=== PATIENT | male | born 1935 | race African-American/Black ===

== ENCOUNTER 2017-04-27 02:14 | Inpatient (IN) | payer MEDICARE, OTHER ==
[2017-04-27] VITALS (9 sets, daily range): BP systolic 108–163; BP diastolic 53–67; PULSE 61–90; RESP 10–20; TEMP 95.2–99; O2SAT 97–100
[~2017-04-27] VITALS: Ht 172.7 cm; Wt 64.1 kg
--- NOTE | 2017-04-27 02:54 | PD ---
HPI Chief Complaint: Fall Time Seen by Provider: 02:22 Travel History International Travel<30 days: No Contact w/Intl Traveler<30days: No Traveled to known affect area: No History of Present Illness HPI Patient is an 81-year-old male presents emergency department for evaluation of left hip pain. According to EMS the patient fell at 1800 yesterday. [facility], and was complaining of left hip pain and x- ray was ordered at the [facility] showing a left femur fracture and EMS was called and was transported here. In route the patient received 10 mg of morphine by EMS, he is unable to provide any history at this time likely secondary to medication effect. When asked if he was hurting anywhere patient states "not anymore". Somewhat slurred in his speech is moving all 4 of his extremities on command. PFSH Past Medical History Medical History: Unable to Obtain Past Surgical History Surgical History: Unable to Obtain Social History Tobacco Use: No Allergies-Medications (Allergen,Severity, Reaction): Coded Allergies: No Known Allergies (Unverified , 04/27/17) Reported Meds & Prescriptions Reported Meds & Active Scripts Active Calcium 600+D 200 (Calcium Carbonate-Vitamin D) 600-200 Mg-Unit Tab 1 Tab PO BID 30 Days Vitamin D3 (Cholecalciferol) 2,000 Unit Cap 2,000 Units PO DAILY Ergocalciferol 50,000 Unit Cap 50,000 Units PO Q7D Xarelto (Rivaroxaban) 10 Mg Tab 10 Mg PO DAILY 14 Days [place] (Hydrocodone-Acetaminophen) 5 Mg-325 Mg Tab 1 Tab PO Q4H PRN Reported Tylenol (Acetaminophen) 325 Mg Tab 650 Mg PO Q8HR PRN Tubersol (Tuberculin Ppd) 5 Unit/0.1 Ml Syringe 0.1 Ml I-DERMAL .ONCE Trazodone (Trazodone HCl) 50 Mg Tab 75 Mg PO HS Tamsulosin (Tamsulosin HCl) 0.4 Mg Cap 0.4 Mg PO DAILY Seroquel (Quetiapine Fumarate) 25 Mg Tab 25 Mg PO TID Nitrostat SL (Nitroglycerin) 0.4 Mg Subl 0.4 Mg SL DIRECTED PRN 1 tablet under the tongue as needed for chest pain. Repeat every 5 minutes for a total of 3 DOSES or call 911 if NO relief. Namzaric (Memantine-Donepezil) 28-10 Mg Cap 1 Cap PO DAILY Levothyroxine (Levothyroxine Sodium) 50 Mcg Tab 50 Mcg PO DAILY Glucophage (Metformin HCl) 500 Mg Tab 250 Mg PO BIDPC Econazole Topical (Econazole Nitrate) 1% Cream 1 Applic TOPICAL DAILY Ferrous Sulfate 325 Mg (65 Mg Iron) Tablet 325 Mg PO TIDPC Clopidogrel (Clopidogrel Bisulfate) 75 Mg Tab 75 Mg PO DAILY Atorvastatin (Atorvastatin Calcium) 20 Mg Tab 20 Mg PO HS Amlodipine (Amlodipine Besylate) 10 Mg Tab 10 Mg PO DAILY Review of Systems ROS Limitations: Altered Mental Status Except as stated in HPI: all other systems reviewed are Neg Physical Exam Narrative GENERAL: Well-developed well-nourished in no obvious distress SKIN: Focused skin assessment warm/dry. HEAD: Atraumatic. Normocephalic. No zacarias signs no raccoon's eyes EYES: Pupils equal and round. No scleral icterus. No injection or drainage. ENT: No nasal bleeding or discharge. Mucous membranes pink and moist. NECK: Trachea midline. No JVD. CARDIOVASCULAR: Regular rate and rhythm. No murmur appreciated. RESPIRATORY: No accessory muscle use. Clear to auscultation. Breath sounds equal bilaterally. GASTROINTESTINAL: Abdomen soft, non-tender, nondistended. Hepatic and splenic margins not palpable. MUSCULOSKELETAL: There is shortening and external rotation of the left lower extremity, tenderness in internal and external rotations. Pulses motor and sensory intact distally in all 4 extremities. Compartments are soft. No midline CT or L-spine tenderness, pelvis stable,. NEUROLOGICAL: Awake and alert. No obvious cranial nerve deficits. Motor grossly within normal limits. Normal speech. PSYCHIATRIC: Appropriate mood and affect; insight and judgment normal. Data Data Last Documented VS Vital Signs Date Time Temp Pulse Resp B/P (MAP) Pulse Ox O2 Delivery O2 Flow Rate FiO2 04/27/17 03:14 98 Nasal Cannula 2.00 04/27/17 02:26 75 14 114/53 (73) Orders Orders Complete Blood Count With Diff (04/27/17 02:52) Comprehensive Metabolic Panel (04/27/17 02:52) Prothrombin Time / Inr (Pt) (04/27/17 02:52) Act Partial Throm Time (Ptt) (04/27/17 02:52) Type And Screen (04/27/17 02:52) Chest, Single Ap (04/27/17 02:52) Ecg Monitoring (04/27/17 02:52) Iv Access Insert/Monitor (04/27/17 02:52) Oximetry (04/27/17 02:52) Electrocardiogram (04/27/17 ) Hip, Uni(Ap&Lat) W Ap Pelvis (04/27/17 ) Admit Order (Ed Use Only) (04/27/17 ) Consult Orthopedic (04/27/17 ) Labs Laboratory Tests Test 04/27/17 03:55 White Blood Count 13.2 TH/MM3 Red Blood Count 2.61 MIL/MM3 Hemoglobin 9.0 GM/DL Hematocrit 26.8 % Mean Corpuscular Volume 102.9 FL Mean Corpuscular Hemoglobin 34.5 PG Mean Corpuscular Hemoglobin Concent 33.5 % Red Cell Distribution Width 14.2 % Platelet Count 233 TH/MM3 Mean Platelet Volume 8.1 FL Neutrophils (%) (Auto) 93.1 % Lymphocytes (%) (Auto) 2.8 % Monocytes (%) (Auto) 3.7 % Eosinophils (%) (Auto) 0.0 % Basophils (%) (Auto) 0.4 % Neutrophils # (Auto) 12.2 TH/MM3 Lymphocytes # (Auto) 0.4 TH/MM3 Monocytes # (Auto) 0.5 TH/MM3 Eosinophils # (Auto) 0.0 TH/MM3 Basophils # (Auto) 0.1 TH/MM3 CBC Comment AUTO DIFF Differential Comment AUTO DIFF CONFIRMED Platelet Estimate NORMAL Platelet Morphology Comment NORMAL Prothrombin Time 11.1 SEC Prothromb Time International Ratio 1.1 RATIO Activated Partial Thromboplast Time 19.8 SEC Blood Urea Nitrogen 29 MG/DL Creatinine 1.33 MG/DL Random Glucose 114 MG/DL Total Protein 7.2 GM/DL Albumin 3.9 GM/DL Calcium Level 9.0 MG/DL Alkaline Phosphatase 91 U/L Aspartate Amino Transf (AST/SGOT) 11 U/L Alanine Aminotransferase (ALT/SGPT) 12 U/L Total Bilirubin 0.9 MG/DL Sodium Level 144 MEQ/L Potassium Level 4.2 MEQ/L Chloride Level 107 MEQ/L Carbon Dioxide Level 25.8 MEQ/L Anion Gap 11 MEQ/L Estimat Glomerular Filtration Rate 62 ML/MIN MDM Medical Decision Making Medical Screen Exam Complete: Yes Emergency Medical Condition: Yes Differential Diagnosis Hip fracture, fall, hip pain, hip contusion Narrative Course Patient appears well, head and neck are atraumatic, remainder of his exam is atraumatic except for the left hip. Last 24 hours Impressions Chest X-Ray 04/27/17 0252 Signed Impressions: Service Date/Time: Thursday, April 27, 2017 03:12 - CONCLUSION: No acute disease. Nick Pena MD Hip and Pelvis X-Ray 04/27/17 0000 Signed Impressions: Service Date/Time: Thursday, April 27, 2017 03:09 - CONCLUSION: Left proximal femur fracture. Nick Pena MD Patient did discussed with hospitalist for admission. Diagnosis Primary Impression: Femur fracture, left Qualified Codes: S72.002A - Fracture of unspecified part of neck of left femur , initial encounter for closed fracture Scripts Calcium Carbonate-Vitamin D (Calcium 600+D 200) 600-200 Mg-Unit Tab 1 TAB PO BID for Nutritional Supplement for 30 Days, #60 TAB 0 Refills Prov: Luis Torres PA/Latex Thread Machine Operator PA 04/27/17 Cholecalciferol (Vitamin D3) 2,000 Unit Cap 2000 UNITS PO DAILY for Nutritional Supplement, #60 CAP 0 Refills Prov: Luis Torres PA/Latex Thread Machine Operator PA 04/27/17 Ergocalciferol (Ergocalciferol) 50,000 Unit Cap 45544 UNITS PO Q7D for Nutritional Supplement, #8 CAP Prov: Luis Torres PA/Latex Thread Machine Operator PA 04/27/17 Rivaroxaban (Xarelto) 10 Mg Tab 10 MG PO DAILY for Blood Clot Prevention for 14 Days, #14 TAB 0 Refills Prov: Luis Torres PA/Latex Thread Machine Operator PA 04/27/17 Hydrocodone-Acetaminophen ([place]) 5 Mg-325 Mg Tab 1 TAB PO Q4H Y for PAIN, #60 TAB 0 Refills Prov: Luis Torres PA/Latex Thread Machine Operator PA 04/27/17 Disposition: 01 DISCHARGE HOME Condition: Stable Broderick Reinoso MD Apr 27, 2017 02:54
--- NOTE | 2017-04-27 03:38 | RADRPT ---
EXAM DATE/TIME: 04/27/2017 03:12 [facility] COMPARISON: No previous studies available for comparison. INDICATIONS : Chest pain due to fall. MEDICAL HISTORY : None. SURGICAL HISTORY : None. ENCOUNTER: Initial ACUITY: 1 day PAIN SCORE: 5/10 LOCATION: Bilateral chest FINDINGS: A single view of the chest demonstrates the lungs to be symmetrically aerated without evidence of mas s, infiltrate or effusion. The cardiomediastinal contours are unremarkable. Osseous structures are intact. CONCLUSION: No acute disease. Nick Pena MD on April 27, 2017 at 3:36 Board Certified Radiologist. This report was verified electronically.
--- NOTE | 2017-04-27 03:38 | RADRPT ---
EXAM DATE/TIME: 04/27/2017 03:09 [facility] COMPARISON: No previous studies available for comparison. INDICATIONS : Left hip pain due to fall. MEDICAL HISTORY : None. SURGICAL HISTORY : None. ENCOUNTER: Initial ACUITY: 1 day PAIN SCORE: 5/10 LOCATION: Left hip FINDINGS: There is a comminuted fractures of the left proximal femur at the level of the trochanters with displ acement of the lesser and greater trochanteric fragment seen. Numerous surgical clips are noted in th e pelvis. Mild osteoarthritis of the hips. CONCLUSION: Left proximal femur fracture. Nick Pena MD on April 27, 2017 at 3:35 Board Certified Radiologist. This report was verified electronically.
[2017-04-27 04:09] LABS: AUTOMATED NEUTROPHIL # 12.2 TH/MM3 (1.8-7.7); BASOPHIL # 0.1 TH/MM3 (0-0.2); BASOPHIL % 0.4 % (0.0-2.0); HEMATOCRIT 26.8 % (39.0-51.0); LYMPH % 2.8 % (9.0-44.0); LYMPHOCYTE # 0.4 TH/MM3 (1.0-4.8); MEAN CELL VOLUME 102.9 FL (80.0-100.0); MEAN CORPUSCULAR HEMOGLOBIN 34.5 PG (27.0-34.0); MEAN CORPUSCULAR HGB CONC 33.5 % (32.0-36.0); MEAN PLATELET VOLUME 8.1 FL (7.0-11.0); MONO % 3.7 % (0.0-8.0); MONOCYTE # 0.5 TH/MM3 (0-0.9); NEUT % 93.1 % (16.0-70.0); PLATELET COUNT 233 TH/MM3 (150-450); RED BLOOD COUNT 2.61 MIL/MM3 (4.50-5.90); RED CELL DISTRIBUTION WIDTH 14.2 % (11.6-17.2); WHITE BLOOD COUNT 13.2 TH/MM3 (4.0-11.0)
[2017-04-27 04:21] LABS: INTERNATIONAL NORMALIZED RATIO 1.1 RATIO; PROTHROMBIN TIME - PATIENT 11.1 SEC (9.8-11.6)
[2017-04-27 04:34] LABS: ALBUMIN 3.9 GM/DL (3.4-5.0); ALT (GPT) 12 U/L (12-78); AST (GOT) 11 U/L (15-37); BICARBONATE 25.8 MEQ/L (21.0-32.0); BLOOD UREA NITROGEN 29 MG/DL (7-18); CHLORIDE 107 MEQ/L (98-107); CREATININE 1.33 MG/DL (0.60-1.30); GLOMERULAR FILTRATION RATE 62 ML/MIN (>89); GLUCOSE,RANDOM 114 MG/DL (74-106); SODIUM (NA) 144 MEQ/L (136-145)
[2017-04-27 04:36] LABS: ALKALINE PHOSPHATASE 91 U/L (45-117); TOTAL BILIRUBIN ADULT 0.9 MG/DL (0.2-1.0); TOTAL PROTEIN 7.2 GM/DL (6.4-8.2)
[2017-04-27] MEDS ORDERED: LACTULOSE SYRUP 20 GM/30 ML CUP PO PRN (04:45)
[2017-04-27] MEDS ORDERED: ONDANSETRON HCL 4 MG/2 ML VIAL IVP PRN (04:45)
[2017-04-27] MEDS ORDERED: SENNOSIDES 8.6 MG TAB PO PRN (04:45)
[2017-04-27] MEDS ORDERED: MAGNESIUM HYDROXIDE SUSP 30 ML CUP PO PRN (04:45)
[2017-04-27] MEDS ORDERED: NALOXONE HCL 0.4 MG/ML AMP IV PUSH PRN (04:45)
[2017-04-27] MEDS ORDERED: SODIUM CHLORIDE 0.9% FLUSH 10 ML FLUSH IV FLUSH PRN (04:45)
[2017-04-27] MEDS: SODIUM CHLOR 0.9% 1000 ML INJ 1,000 ML IV SCH ×2 (05:08→21:50)
[2017-04-27] MEDS ORDERED: ECON0.052 TOPICAL (05:17)
[2017-04-27] MEDS ORDERED: MEMA1CAP2 PO (05:17)
[2017-04-27] MEDS ORDERED: TRAZ50TA12 PO (05:17)
[2017-04-27] MEDS ORDERED: LEVO50TA4 PO (05:17)
[2017-04-27] MEDS ORDERED: TYLE325T PO (05:17)
[2017-04-27] MEDS ORDERED: TUBE5INJ3 I-DERMAL (05:17)
[2017-04-27] MEDS ORDERED: AMLO10TA2 PO (05:17)
[2017-04-27] MEDS ORDERED: FERR325T18 PO (05:17)
[2017-04-27] MEDS ORDERED: NITR0.4S SL (05:17)
[2017-04-27] MEDS ORDERED: METF500 PO (05:17)
[2017-04-27] MEDS ORDERED: TAMS0.4C4 PO (05:17)
[2017-04-27] MEDS ORDERED: CLOP75TA PO (05:17)
[2017-04-27] MEDS ORDERED: ATOR20TA15 PO (05:17)
[2017-04-27] MEDS ORDERED: SERO25TA PO (05:17)
--- NOTE | 2017-04-27 06:43 | PD.ORT.PN ---
Subjective Subjective Remarks s/p fall at assisted. patient confused and does not answer questions Objective Vitals Vital Signs Date Time Temp Pulse Resp B/P (MAP) Pulse Ox O2 Delivery O2 Flow Rate FiO2 04/27/17 06:21 04/27/17 04:52 70 16 108/53 (71) 100 Nasal Cannula 2.00 04/27/17 03:14 98 Nasal Cannula 2.00 04/27/17 02:26 75 14 114/53 (73) 100 Result Diagram: 04/27/17 0355 04/27/17 0355 Other Results Laboratory Tests Test 04/27/17 03:55 Prothromb Time International Ratio 1.1 RATIO Prothrombin Time 11.1 SEC (9.8-11.6) Imaging Last 24 hours Impressions Chest X-Ray 04/27/17 0252 Signed Impressions: Service Date/Time: Thursday, April 27, 2017 03:12 - CONCLUSION: No acute disease. Nick Pena MD Hip and Pelvis X-Ray 04/27/17 0000 Signed Impressions: Service Date/Time: Thursday, April 27, 2017 03:09 - CONCLUSION: Left proximal femur fracture. Nick Pena MD Objective Remarks LLE: pain with motion. nvia Assessment & Plan Assessment and Plan 1) Left Intertroch Fx -consents signed -npo -surgery today with Dr Worley POD 0 s/p IMN left hip -WBAT -CM for SNF placement -daily dressing changs POD 2 -DVT prophylaxis -f/u with Dr Worley or PA in 2 weeks Luis Torres/Business Intelligence Architect BEATRIZ Apr 27, 2017 06:43
[2017-04-27] MEDS ORDERED: WALKER/ADULT/FO1 MIS (06:44)
[2017-04-27] MEDS ORDERED: CALCTAB19 PO (06:44)
[2017-04-27] MEDS ORDERED: VITA2000 PO (06:44)
[2017-04-27] MEDS ORDERED: VITA500012 PO (06:44)
[2017-04-27] MEDS ORDERED: XARE10TA PO (06:44)
[2017-04-27] MEDS ORDERED: NORC5TAB PO (06:44)
[2017-04-27] MEDS ORDERED: CHLORHEXIDINE GLUCONATE 2 % 1 PACK (2 CLOTHS) TOPICAL PRN (06:45)
[2017-04-27] MEDS ORDERED: LACTATED RINGER'S 1000 ML IV PRN (06:45)
[2017-04-27] MEDS ORDERED: SODIUM CHLORID 0.9% 500 ML IV PRN (06:45)
[2017-04-27] MEDS ORDERED: POVIDONE IODINE 5% (ANTISEPSIS KIT) 4 APPLICATIONS EACH NARE PRN (06:45)
[2017-04-27] MEDS ORDERED: BUPIVACAINE/EPINEPHRINE 0.25% 50 ML VIAL ONE (07:08)
[2017-04-27] MEDS ORDERED: GENTAMICIN SULFATE 80 MG/2 ML VIAL ONE (07:08)
[2017-04-27] MEDS ORDERED: VANCOMYCIN HCL 1000 MG VIAL ONE (07:27)
[2017-04-27] MEDS ORDERED: ceFAZolin INJ 1,000 MG VIAL ONE (07:28)
--- NOTE | 2017-04-27 07:59 | PD.OP ---
cc: Festus Martinez MD Operative Report Date of Surgery: Apr 27, 2017 Preoperative Diagnosis: Displaced left hip intertrochanteric fracture Postoperative Diagnosis: Procedure: Left hip reduction and intramedullary nail fixation Anesthesia: Gen. Surgeon: Festus Martinez Engraver(s): JEN Butt PA-C The surgical procedure was assisted by my physician bookkeeper assistant. My P.A. presence was necessary throughout this case for the manipulation and positioning of the surgical extremity. My P.A. was assisting me throughout the duration of this procedure. The skill set of a physician bookkeeper assistant was medically necessary to complete this procedure. During the surgical case the surgical supply assistant was working at the back table and the physician bookkeeper assistant was directly assisting me. Operation and Findings: Implants used: [13]mm Biomet Affyxis short troch nail Plan of activity: Weight-bear as tolerated Patient was seen and evaluated preoperatively. The patient has significant hip pain from intertrochanteric hip fracture. The risk and benefits of surgery were discussed in depth with the patient to include bleeding infection nonunion malunion and need for hip replacement painful hardware as well as medical competitions including but not stroke heart attack and . Informed consent was obtained. Operative site was marked. Patient was brought to the operating room and placed on fracture table. IV sedation was administered by anesthesiologist. Timeout procedure was performed. Hip and leg were prepped with alcohol followed by DuraPrep and draped in the usual sterile fashion. IV antibiotics were given prior to incision. Procedure began with reduction of fracture. Traction was applied. The leg was manipulated to achieve reduction. Excellent reduction was achieved. Fluoroscopy was used to confirm reduction. A three inch incision was made proximal to the trochanter. Subcutaneous tissue was dissected bluntly. Guidepin was placed at the tip of the trochanter and advanced into the femoral canal. Fluoroscopy confirmed appropriate guidepin placement. A opening reamer was placed over the guidepin. The Biomet nail was attached to the insertion handle. Nail was now placed through the tip of the trochanter into the femoral canal. Fluoroscopy confirmed appropriate nail placement. A second incision was made over the lateral thigh. Cannulas were placed through the insertion handle down to the femur. Guidepin was now placed through the femoral nail into the center of the femoral head. Fluoroscopy confirmed appropriate guidepin placement. Screw length was measured. Cannulated drill was placed over the guidepin. Appropriate length lag screw was now placed. Traction was released and compression was applied. The set screw was now tightened in dynamic mode. Using the insertion handle as a guide a distal interlocking screw was drilled and placed. Final fluoroscopy revealed well aligned fracture with well-placed hardware. Incision was closed with 3-0 Vicryl and aziza. Sterile dressings were applied. Patient was awakened and transferred to recovery room. Festus Martinez MD Apr 27, 2017 07:59
[2017-04-27] MEDS ORDERED: MORPHINE SULFATE 4 MG/ML INJ IV PUSH PRN (08:00)
[2017-04-27] MEDS ORDERED: diphenhydrAMINE HCL 25 MG CAP PO PRN (08:00)
[2017-04-27] MEDS ORDERED: ERGOCALCIFEROL (VIT D2) 50,000 UNIT CAP PO ONE (08:00)
[2017-04-27] MEDS ORDERED: DO NOT ADM ANY ANTICOAGULANT DRUGS PRN (08:23)
[2017-04-27] MEDS ORDERED: *morphine SULFATE 4 MG/ML PERIprocedure ONLY ONE (08:27)
--- NOTE | 2017-04-27 08:37 | MB ---
cc: KENDALL CARTWRIGHT DATE OF CONSULTATION 04/27/2017 REASON FOR CONSULTATION Left hip intertrochanteric fracture. CONSULTING PHYSICIAN Dr. Vanessa FALK aMteo is an 81-year-old male. He does have a history of dementia. He lives in a half-way. He had a fall. He presented to the emergency room where x-rays revealed a left hip intertrochanteric fracture. The patient is confused. He was unable to answer any significant questions. He currently states that he is not having much pain. He does not recall the fall. He is unable to give any further history. PAST MEDICAL HISTORY Unobtainable FAMILY HISTORY Unobtainable REVIEW OF SYSTEMS Unobtainable SOCIAL HISTORY Unobtainable PHYSICAL EXAMINATION The patient is a thin 81-year male in no acute distress. He is awake and alert. He is thin, but appears well-developed and well-nourished. He is in no acute distress. He does have confusion. VITAL SIGNS: Temperature 96.3, pulse 61, respirations 15, blood pressure 163/57, O2 sat is 99% on two liters nasal cannula. HEAD: The patient is normocephalic. EYES: Pupils are equal. NECK: Soft and nontender. Trachea is midline. ABDOMEN: Soft, nontender, nondistended. EXTREMITIES: Examination of the bilateral upper extremities reveals no pain with shoulder, elbow or wrist motion. He has intact sensation in all fingers. He has good cap refill in all fingers. Radial pulses are palpable. Sensation is intact to both hands. Examination of right leg reveals no pain with hip, knee or ankle motion. Skin is intact. Dorsalis pedis pulses palpable. Sensation is intact. Examination of the left leg reveals pain with any hip motion. He is tender to palpation over the proximal femur. He has no tenderness over the knee, tibia or ankle. Skin is intact. Dorsalis pedis pulses are palpable. X-RAYS X-rays of left hip were reviewed. X-rays reveal a displaced left hip intertrochanteric fracture. LABORATORY DATA The patient has a white blood cell count of 13.2, hemoglobin of 9.0, hematocrit 26.8, INR is 1.1, BUN is 29, creatinine is 1.33. IMPRESSION 1. Dementia 2. Anemia 3. Left hip intertrochanteric fracture. 4. Possible osteoporosis. PLAN Treatment options were discussed with the patient. Unfortunately he is confused and does not fully understand the surgery. I will attempt to contact his family. His is reportedly power of psychiatry resident. The risks of surgery include bleeding, infection, injury to arteries, nerves and blood vessels, nonunion, malunion, painful hardware as well as medical complications including blood clot, stroke, heart attack and . I will attempt to contact the patient's for consents. X-rays and lab results were reviewed. I will plan on surgery today. A mid-level provider in my office, nurse practitioner or PA, may see this patient on a follow-up basis and continue to implement the objective of this plan including: Starting or adjusting medications, injections of muscle, tendon, bursa or joints, cast application, orthotic or brace application, physical therapy, further radiographic studies including x-ray, MRI, CT, ultrasounds or bone scan, vascular studies, neurologic studies, or other specialist consultations, and proceeding with surgical management as appropriate. MD DENISHA Navarrete/CHINTAN /7:59 AM /8:15 AM
[2017-04-27] MEDS ORDERED: *LABETALOL HCL 100 MG/20 ML VIAL PERIprocedural Use ONLY ONE (08:46)
[2017-04-27] MEDS: CALCIUM/VITAMIN D 250 MG/125 U TAB PO SCH ×3 (09:00→17:46)
[2017-04-27] MEDS: SODIUM CHLORIDE 0.9% FLUSH 10 ML FLUSH IV FLUSH SCH ×2 (09:00→21:49)
[2017-04-27] MEDS ORDERED: STERILE WATER FOR INJECTION 20 ML VIAL IV ONE (12:00)
[2017-04-27] MEDS ORDERED: ONDANSETRON HCL 4 MG/2 ML VIAL IV PUSH ONE (12:00)
[2017-04-27] MEDS ORDERED: PROPOFOL 200 MG/20 ML AMP IV ONE (12:00)
[2017-04-27] MEDS ORDERED: ePHEDrine/NS 25 MG/5 ML SYRINGE IV ONE (12:00)
[2017-04-27] MEDS ORDERED: LIDOCAINE HCL 1% PF 5 ML SYRINGE OTHER ONE (12:00)
[2017-04-27] MEDS: CHOLECALCIFEROL (VIT D3) 5000 UNIT CAP PO SCH (12:45)
[2017-04-27] MEDS: ACETAMINOPHEN/HYDROcodone 325 MG/5 MG TAB PO PRN (12:46)
--- NOTE | 2017-04-27 12:47 | RADRPT ---
EXAM DATE/TIME: 04/27/2017 07:57 [facility] COMPARISON: No previous studies available for comparison. INDICATIONS : Left hip troch nail. MEDICAL HISTORY : None. SURGICAL HISTORY : None. ENCOUNTER: Initial ACUITY: 1 day PAIN SCORE: Non-responsive. LOCATION: Left hip FINDINGS: 4 intraoperative fluoroscopy image of the left hip demonstrating intramedullary keiko with compression screw fixation of the left femoral intertrochanteric fracture. Hardware appears intact and well-posit ioned. There is near-anatomic alignment. No significant new fractures. CONCLUSION: 1. Status post left hip ORIF, as above. Porfirio Fleming MD on April 27, 2017 at 12:43 Board Certified Radiologist. This report was verified electronically.
--- NOTE | 2017-04-27 12:49 | HHI.HP ---
HPI Service [facility] Primary Care Physician Unknown Admission Diagnosis Hip fracture, Left. Diagnoses: (1) Femur fracture, left Chief Complaint: Left hip pain Travel History International Travel<30 Days: No Contact w/Intl Traveler <30 Da: No Traveled to Known Affected Are: No History of Present Illness 81-year-old man with a history of diabetes type 2, dementia was brought to the ED yesterday after a mechanical fall with patient complaining of left hip pain which was rated at a time above 10 in intensity. Hip x-ray was ordered in his local shelter facility and was positive for left femur fracture. This morning, patient was taking to the operating room and underwent left hip reduction and intramedullary nail fixation. Patient was seen postoperatively in his room, and complained of left hip pain. He denies any chest pain or shortness of breath. Vitals stable. No other issues Review of Systems Except as stated in HPI: all other systems reviewed are Neg Past Family Social History Past Medical History Diabetes type 2 Hypertension Hypothyroidism Dementia Anxiety CAD Past Surgical History Left hip reduction and intramedullary nail fixation 04/27/17 Prior left knee surgery Reported Medications Calcium 600+D 200 (Calcium Carbonate-Vitamin D) 600-200 Mg-Unit Tab 1 Tab PO BID 30 Days Vitamin D3 (Cholecalciferol) 2,000 Unit Cap 2,000 Units PO DAILY Ergocalciferol 50,000 Unit Cap 50,000 Units PO Q7D Xarelto (Rivaroxaban) 10 Mg Tab 10 Mg PO DAILY 14 Days [place] (Hydrocodone-Acetaminophen) 5 Mg-325 Mg Tab 1 Tab PO Q4H PRN Reported Tylenol (Acetaminophen) 325 Mg Tab 650 Mg PO Q8HR PRN Tubersol (Tuberculin Ppd) 5 Unit/0.1 Ml Syringe 0.1 Ml I-DERMAL .ONCE Trazodone (Trazodone HCl) 50 Mg Tab 75 Mg PO HS Tamsulosin (Tamsulosin HCl) 0.4 Mg Cap 0.4 Mg PO DAILY Seroquel (Quetiapine Fumarate) 25 Mg Tab 25 Mg PO TID Nitrostat SL (Nitroglycerin) 0.4 Mg Subl 0.4 Mg SL DIRECTED PRN 1 tablet under the tongue as needed for chest pain. Repeat every 5 minutes for a total of 3 DOSES or call 911 if NO relief. Namzaric (Memantine-Donepezil) 28-10 Mg Cap 1 Cap PO DAILY Levothyroxine (Levothyroxine Sodium) 50 Mcg Tab 50 Mcg PO DAILY Glucophage (Metformin HCl) 500 Mg Tab 250 Mg PO BIDPC Econazole Topical (Econazole Nitrate) 1% Cream 1 Applic TOPICAL DAILY Ferrous Sulfate 325 Mg (65 Mg Iron) Tablet 325 Mg PO TIDPC Clopidogrel (Clopidogrel Bisulfate) 75 Mg Tab 75 Mg PO DAILY Atorvastatin (Atorvastatin Calcium) 20 Mg Tab 20 Mg PO HS Amlodipine (Amlodipine Besylate) 10 Mg Tab 10 Mg PO DAILY Allergies: Coded Allergies: No Known Allergies (Unverified , 04/27/17) Family History Due to patient advanced age, vomiting history not relevant Social History Patient is a resident of a local shelter facility, and denies any tobacco or alcohol use Physical Exam Vital Signs Vital Signs Date Time Temp Pulse Resp B/P (MAP) Pulse Ox O2 Delivery O2 Flow Rate FiO2 04/27/17 09:58 95.2 68 10 155/63 (93) 100 04/27/17 09:35 97.8 67 15 146/56 (86) 100 Room Air 04/27/17 09:15 61 15 163/72 (102) 100 Room Air 04/27/17 09:00 59 15 179/81 (113) 100 Nasal Cannula 2 04/27/17 08:45 79 15 190/79 (116) 100 Nasal Cannula 2 04/27/17 08:30 67 14 180/77 (111) 100 Nasal Cannula 2 04/27/17 08:22 97.5 74 14 216/81 (126) 100 Nasal Cannula 2 04/27/17 06:21 04/27/17 06:15 96.3 61 15 163/57 (92) 99 04/27/17 04:52 70 16 108/53 (71) 100 Nasal Cannula 2.00 04/27/17 03:14 98 Nasal Cannula 2.00 04/27/17 02:26 75 14 114/53 (73) 100 Physical Exam GENERAL: This is a well-nourished, well-developed patient, in no apparent distress. SKIN: No rashes, ecchymoses or lesions. Cool and dry. HEAD: Atraumatic. Normocephalic. No temporal or scalp tenderness. EYES: Pupils equal round and reactive. Extraocular motions intact. No scleral icterus. No injection or drainage. ENT: Nose without bleeding, purulent drainage or septal hematoma. Throat without erythema, tonsillar hypertrophy or exudate. Uvula midline. Airway patent. NECK: Trachea midline. No JVD or lymphadenopathy. Supple, nontender, no meningeal signs. CARDIOVASCULAR: Regular rate and rhythm without murmurs, gallops, or rubs. RESPIRATORY: Clear to auscultation. Breath sounds equal bilaterally. No wheezes , rales, or rhonchi. GASTROINTESTINAL: Abdomen soft, non-tender, nondistended. No hepato-splenomegaly , or palpable masses. No guarding. MUSCULOSKELETAL: Extremities without clubbing, cyanosis, or edema. Dressing over surgical site of left hip-neurovascular intact NEUROLOGICAL: Awake and alert. Cranial nerves II through XII intact. Motor and sensory grossly within normal limits. Five out of 5 muscle strength in all muscle groups. Normal speech. Laboratory Laboratory Tests Test 04/27/17 03:55 White Blood Count 13.2 Red Blood Count 2.61 Hemoglobin 9.0 Hematocrit 26.8 Mean Corpuscular Volume 102.9 Mean Corpuscular Hemoglobin 34.5 Mean Corpuscular Hemoglobin Concent 33.5 Red Cell Distribution Width 14.2 Platelet Count 233 Mean Platelet Volume 8.1 Neutrophils (%) (Auto) 93.1 Lymphocytes (%) (Auto) 2.8 Monocytes (%) (Auto) 3.7 Eosinophils (%) (Auto) 0.0 Basophils (%) (Auto) 0.4 Neutrophils # (Auto) 12.2 Lymphocytes # (Auto) 0.4 Monocytes # (Auto) 0.5 Eosinophils # (Auto) 0.0 Basophils # (Auto) 0.1 CBC Comment AUTO DIFF Differential Comment AUTO DIFF CONFIRMED Platelet Estimate NORMAL Platelet Morphology Comment NORMAL Prothrombin Time 11.1 Prothromb Time International Ratio 1.1 Activated Partial Thromboplast Time 19.8 Blood Urea Nitrogen 29 Creatinine 1.33 Random Glucose 114 Total Protein 7.2 Albumin 3.9 Calcium Level 9.0 Alkaline Phosphatase 91 Aspartate Amino Transf (AST/SGOT) 11 Alanine Aminotransferase (ALT/SGPT) 12 Total Bilirubin 0.9 Sodium Level 144 Potassium Level 4.2 Chloride Level 107 Carbon Dioxide Level 25.8 Anion Gap 11 Estimat Glomerular Filtration Rate 62 25-Hydroxy Vitamin D Total 18.2 Result Diagram: 04/27/17 0355 04/27/17 0355 Imaging Last Impressions Chest X-Ray 04/27/17 0252 Signed Impressions: Service Date/Time: Thursday, April 27, 2017 03:12 - CONCLUSION: No acute disease. Nick Pena MD Hip and Pelvis X-Ray 04/27/17 0000 Signed Impressions: Service Date/Time: Thursday, April 27, 2017 03:09 - CONCLUSION: Left proximal femur fracture. Nick Pena MD Septic Shock Reassessment Septic shock perfusion: reassessment completed Caprini VTE Risk Assessment Caprini VTE Risk Assessment: Mod/High Risk (score >= 2) Caprini Risk Assessment Model Point Value = 1 Point Value = 2 Point Value = 3 Point Value = 5 Age 41-60 Minor surgery BMI > 25 kg/m2 Swollen legs Varicose veins or History of unexplained or recurrent spontaneous Oral contraceptives or hormone replacement Sepsis (< 1 month) Serious lung disease, including pneumonia (< 1 month) Abnormal pulmonary function Acute myocardial infarction Congestive heart failure (< 1 month) History of inflammatory bowel disease Medical patient at bed rest Age 61-74 Arthroscopic surgery Major open surgery (> 45 min) Laparoscopic surgery (> 45 min) Malignancy Confined to bed (> 72 hours) Immobilizing plaster cast Central venous access Age >= 75 History of VTE Family history of VTE Factor V Leiden Prothrombin [id number] Lupus anticoagulant Anticardiolipin antibodies Elevated serum homocysteine Heparin-induced thrombocytopenia Other congenital or acquired thrombophilia Stroke (< 1 month) Elective arthroplasty Hip, pelvis, or leg fracture Acute spinal cord injury (< 1 month) Prophylaxis Regimen Total Risk Factor Score Risk Level Prophylaxis Regimen 0-1 Low Early ambulation 2 Moderate Order ONE of the following: *Sequential Compression Device (SCD) *Heparin 5000 units SQ BID 3-4 Higher Order ONE of the following medications: *Heparin 5000 units SQ TID *Enoxaparin/Lovenox 40 mg SQ daily (WT < 150 kg, CrCl > 30 mL/min) *Enoxaparin/Lovenox 30 mg SQ daily (WT < 150 kg, CrCl > 10-29 mL/min) *Enoxaparin/Lovenox 30 mg SQ BID (WT < 150 kg, CrCl > 30 mL/min) AND/OR *Sequential Compression Device (SCD) 5 or more Highest Order ONE of the following medications: *Heparin 5000 units SQ TID (Preferred with Epidurals) *Enoxaparin/Lovenox 40 mg SQ daily (WT < 150 kg, CrCl > 30 mL/min) *Enoxaparin/Lovenox 30 mg SQ daily (WT < 150 kg, CrCl > 10-29 mL/min) *Enoxaparin/Lovenox 30 mg SQ BID (WT < 150 kg, CrCl > 30 mL/min) AND *Sequential Compression Device (SCD) Assessment and Plan Problem List: (1) Femur fracture, left ICD Code: S72.92XA - Unspecified fracture of left femur, initial encounter for closed fracture Status: Acute Assessment and Plan 81-year-old man with Left femur fracture Hip and pelvic x-ray noted and review by me with finding of Displaced left hip intertrochanteric fracture Orthopedic surgery has been consulted Status post Left hip reduction and intramedullary nail fixation Pain management accordingly, Lovenox for DVT prophylaxis Diabetes type 2 Resume metformin, start insulin sliding scale Leukocytosis Chest x-ray noted and reviewed by me without any pulmonary disease Check UA and treat accordingly Macrocytic anemia Check iron study, B12 and folate Monitor H&H Acute renal failure Patient's baseline not known Gentle IV fluid hydration Avoid all nephrotoxic drugs and monitor BUN and creatinine Other chronic medical conditions Resume outpatient medications DVT prophylaxis: Lovenox Code Status Full code Discussed Condition With Patient Physician Certification 2 Midnight Certification Type: Admission for Inpatient Services Order for Inpatient Services The services are ordered in accordance with Medicare regulations or non- Medicare payer requirements, as applicable. In the case of services not specified as inpatient-only, they are appropriately provided as inpatient services in accordance with the 2-midnight benchmark. Estimated LOS (days): 2 days is the estimated time the patient will need to remain in the hospital, assuming treatment plan goals are met and no additional complications. Post-Hospital Plan: Not yet determined Problem Qualifiers (1) Femur fracture, left: Qualified Codes: S72.002A - Fracture of unspecified part of neck of left femur , initial encounter for closed fracture Prakash Carbajal MD Apr 27, 2017 12:49
[2017-04-27] MEDS ORDERED: DEXTROSE 50% IN WATER 50 ML VIAL(D50) IV PUSH PRN (13:00)
[2017-04-27] MEDS ORDERED: GLUCAGON 1 MG/ML VIAL OTHER PRN (13:00)
[2017-04-27] MEDS ORDERED: PILL SPLITTER OTHER PRN (13:15)
[2017-04-27] MEDS: FERROUS SULFATE 325 MG (65 MG ELEMENTAL IRON) TAB PO SCH ×2 (13:58→17:46)
[2017-04-27] MEDS: QUEtiapine FUMARATE 25 MG TAB PO SCH ×2 (13:58→17:46)
[2017-04-27] MEDS ORDERED: RESP: ALBUTEROL 2.5 MG/IPRATROPIUM 0.5 MG NEB (PRN) NEB (14:15)
[2017-04-27] MEDS: metFORMIN HCL 500 MG TAB PO SCH (17:46)
[2017-04-27 17:48] LABS: % SATURATION IRON PROFILE 10.4 % (20-50); IRON (FE) 29 MCG/DL (65-175); TOTAL IRON BINDING CAPACITY 279 MCG/DL (250-450)
[2017-04-27] MEDS: INSULIN ASPART SUPPLEMENTAL SCALE SQ SCH ×2 (17:48→21:49)
[2017-04-27 18:13] LABS: FOLATE 14.5 NG/ML (3.1-17.5)
--- NOTE | 2017-04-27 21:46 | EKG ---
Date Performed: 04/27/2017 Time Performed: 04:35:22 PTAGE: 81 years EKG: Sinus rhythm WITH OCCASIONAL SUPRAVENTRICULAR PREMATURE COMPLEXES BORDERLINE FIRST DEGREE AV BLOCK BORDERLINE ECG NO PREVIOUS TRACING DOCTOR: Jakob Lopez Interpretating Date/Time 04/27/2017 21:46:24
[2017-04-27] MEDS: ATORVASTATIN 20 MG TAB PO SCH (21:49)
[2017-04-28] VITALS (10 sets, daily range): BP systolic 120–170; BP diastolic 44–74; PULSE 68–95; RESP 16–18; TEMP 96.1–99.6; O2SAT 98–100
[2017-04-28] MEDS: ACETAMINOPHEN/HYDROcodone 325 MG/5 MG TAB PO PRN (01:15)
[2017-04-28] MEDS: LEVOTHYROXINE SODIUM 50 MCG TAB PO SCH (05:43)
[2017-04-28 05:46] LABS: BICARBONATE 31.5 MEQ/L (21.0-32.0); CALCIUM 8.9 MG/DL (8.5-10.1); CREATININE 1.61 MG/DL (0.60-1.30)
[2017-04-28 07:05] LABS: AUTOMATED NEUTROPHIL # 10.8 TH/MM3 (1.8-7.7); BASOPHIL % 0.2 % (0.0-2.0); EOSINOPHIL % 0.3 % (0.0-4.0); LYMPH % 6.6 % (9.0-44.0); LYMPHOCYTE # 0.8 TH/MM3 (1.0-4.8); MEAN CELL VOLUME 102.8 FL (80.0-100.0); MEAN CORPUSCULAR HEMOGLOBIN 34.9 PG (27.0-34.0); MEAN CORPUSCULAR HGB CONC 33.9 % (32.0-36.0); MEAN PLATELET VOLUME 8.2 FL (7.0-11.0); MONO % 7.4 % (0.0-8.0); MONOCYTE # 0.9 TH/MM3 (0-0.9); NEUT % 85.5 % (16.0-70.0); PLATELET COUNT 148 TH/MM3 (150-450); RED BLOOD COUNT 1.78 MIL/MM3 (4.50-5.90); RED CELL DISTRIBUTION WIDTH 13.8 % (11.6-17.2); WHITE BLOOD COUNT 12.7 TH/MM3 (4.0-11.0)
[2017-04-28 07:17] LABS: HEMOGLOBIN 6.2 GM/DL (13.0-17.0)
[2017-04-28 07:18] LABS: HEMATOCRIT 18.4 % (39.0-51.0)
[2017-04-28] MEDS ORDERED: FUROSEMIDE 20 MG/2 ML VIAL IV PUSH ONE ×2 (07:45→16:15)
[2017-04-28] MEDS ORDERED: SODIUM CHLOR 0.9% 250 ML INJ 250 ML IV ONE (07:45)
[2017-04-28] MEDS ORDERED: diphenhydrAMINE HCL 25 MG CAP PO PRN (07:45)
[2017-04-28] MEDS: INSULIN ASPART SUPPLEMENTAL SCALE SQ SCH ×4 (08:00→20:35)
[2017-04-28] MEDS: metFORMIN HCL 500 MG TAB PO SCH ×2 (08:01→17:42)
[2017-04-28] MEDS: CLOPIDOGREL 75 MG TAB PO SCH (08:01)
[2017-04-28] MEDS: ENOXAPARIN SODIUM 30 MG/0.3 ML SYRINGE SQ SCH (08:01)
[2017-04-28] MEDS: CHOLECALCIFEROL (VIT D3) 5000 UNIT CAP PO SCH (08:02)
[2017-04-28] MEDS: MEMANTINE HCL 10 MG TAB PO SCH (08:02)
[2017-04-28] MEDS: QUEtiapine FUMARATE 25 MG TAB PO SCH ×3 (08:02→17:43)
[2017-04-28] MEDS: TAMSULOSIN HCL 0.4 MG CAP PO SCH (08:02)
[2017-04-28] MEDS: DONEPEZIL HCL 5 MG TAB PO SCH (08:02)
[2017-04-28] MEDS: CALCIUM/VITAMIN D 250 MG/125 U TAB PO SCH ×3 (08:06→17:43)
[2017-04-28] MEDS: FERROUS SULFATE 325 MG (65 MG ELEMENTAL IRON) TAB PO SCH ×3 (08:06→17:42)
[2017-04-28] MEDS: DONEPEZIL HCL 23 MG TAB PO SCH (08:06)
[2017-04-28] MEDS: SODIUM CHLORIDE 0.9% FLUSH 10 ML FLUSH IV FLUSH SCH ×2 (08:06→20:35)
--- NOTE | 2017-04-28 08:06 | PD.ORT.PN ---
Subjective Subjective Remarks no complaints Objective Vitals Vital Signs Date Time Temp Pulse Resp B/P (MAP) Pulse Ox O2 Delivery O2 Flow Rate FiO2 04/28/17 04:00 97.8 73 18 136/60 (85) 99 04/28/17 00:00 97.9 75 18 155/67 (96) 98 04/27/17 20:00 99.0 90 20 111/63 (79) 97 04/27/17 19:14 Nasal Cannula 2.00 04/27/17 17:30 99 Nasal Cannula 2.00 04/27/17 16:00 95.5 68 12 141/65 (90) 99 04/27/17 12:00 95.6 66 10 143/67 (92) 99 04/27/17 09:58 95.2 68 10 155/63 (93) 100 04/27/17 09:35 97.8 67 15 146/56 (86) 100 Room Air 04/27/17 09:15 61 15 163/72 (102) 100 Room Air 04/27/17 09:00 59 15 179/81 (113) 100 Nasal Cannula 2 04/27/17 08:45 79 15 190/79 (116) 100 Nasal Cannula 2 04/27/17 08:30 67 14 180/77 (111) 100 Nasal Cannula 2 04/27/17 08:22 97.5 74 14 216/81 (126) 100 Nasal Cannula 2 I/O 04/27/17 04/27/17 04/27/17 04/28/17 04/28/17 04/28/17 07:00 15:00 23:00 07:00 15:00 23:00 Intake Total 550 ml 100 ml 759 ml Output Total 50 ml Balance 500 ml 100 ml 759 ml Intake Oral 240 ml IV Total 50 ml 100 ml 519 ml Other 500 ml Output Estimated Blood Loss 50 ml # Voids 3 3 Result Diagram: 04/28/17 0635 04/28/17 0355 Imaging Last 24 hours Impressions Chest X-Ray 04/27/17 0252 Signed Impressions: Service Date/Time: Thursday, April 27, 2017 03:12 - CONCLUSION: No acute disease. Nick Pena MD Hip and Pelvis X-Ray 04/27/17 0000 Signed Impressions: Service Date/Time: Thursday, April 27, 2017 03:09 - CONCLUSION: Left proximal femur fracture. Nick Pena MD Objective Remarks affect blunted L hip dressed: clean with no drainage, mild swelling, moves toes, BCR, calf with no swelling/NT Assessment & Plan Assessment and Plan POD 1 s/p IMN left hip -WBAT -CM for SNF placement -daily dressing changs POD 2 -DVT prophylaxis wiht lovenox - low HCT, call out to medical to consider transfusion -f/u with Dr Worley or PA in 2 weeks Benjy Philip MD Apr 28, 2017 08:06
--- NOTE | 2017-04-28 11:02 | HHI.PR ---
Subjective Remarks Follow-up left femur fracture status post repair/now postoperatively anemia of acute blood loss 04/28/17-patient seen and examined,H/H dropped however patient has no report of GI bleeding. Pain to the left hip more tolerable. Afebrile Objective Vitals Vital Signs Date Time Temp Pulse Resp B/P (MAP) Pulse Ox O2 Delivery O2 Flow Rate FiO2 04/28/17 08:00 98.8 82 17 150/56 (87) 100 04/28/17 04:00 97.8 73 18 136/60 (85) 99 04/28/17 00:00 97.9 75 18 155/67 (96) 98 04/27/17 20:00 99.0 90 20 111/63 (79) 97 04/27/17 19:14 Nasal Cannula 2.00 04/27/17 17:30 99 Nasal Cannula 2.00 04/27/17 16:00 95.5 68 12 141/65 (90) 99 04/27/17 12:00 95.6 66 10 143/67 (92) 99 I/O 04/27/17 04/27/17 04/27/17 04/28/17 04/28/17 04/28/17 07:00 15:00 23:00 07:00 15:00 23:00 Intake Total 550 ml 100 ml 759 ml Output Total 50 ml Balance 500 ml 100 ml 759 ml Intake Oral 240 ml IV Total 50 ml 100 ml 519 ml Other 500 ml Output Estimated Blood Loss 50 ml # Voids 3 3 Result Diagram: 04/28/17 0635 04/28/17 0355 Imaging Last Impressions Chest X-Ray 04/27/17 0252 Signed Impressions: Service Date/Time: Thursday, April 27, 2017 03:12 - CONCLUSION: No acute disease. Nick Pena MD Hip and Pelvis X-Ray 04/27/17 0000 Signed Impressions: Service Date/Time: Thursday, April 27, 2017 03:09 - CONCLUSION: Left proximal femur fracture. Nick Pena MD Hip X-Ray 04/27/17 0000 Signed Impressions: Service Date/Time: Thursday, April 27, 2017 07:57 - CONCLUSION: 1. Status post left hip ORIF, as above. Porfirio Fleming MD Objective Remarks GENERAL: NAD SKIN: Warm and dry. HEAD: Normocephalic. EYES: No scleral icterus. No injection or drainage. NECK: Supple, trachea midline. No JVD or lymphadenopathy. CARDIOVASCULAR: Regular rate and rhythm without murmurs, gallops, or rubs. RESPIRATORY: Breath sounds equal bilaterally. No accessory muscle use. GASTROINTESTINAL: Abdomen soft, non-tender, nondistended. MUSCULOSKELETAL: No cyanosis, or edema. left hip repair-neurovascular BACK: Nontender without obvious deformity. No CVA tenderness. A/P Problem List: (1) Femur fracture, left ICD Code: S72.92XA - Unspecified fracture of left femur, initial encounter for closed fracture Status: Acute (2) Postoperative anemia due to acute blood loss ICD Code: D62 - Acute posthemorrhagic anemia Assessment and Plan 81-year-old man with Left femur fracture Orthopedic surgery has been consulted Status post Left hip reduction and intramedullary nail fixation Pain management accordingly, Lovenox for DVT prophylaxis Postoperative anemia due to acute blood loss Transfuse 2 units packed red blood cell today 04/28/17 Monitor H&H Diabetes type 2 Continue metformin and insulin sliding scale Macrocytic anemia Iron study noted with evidence of DANNY and will likely transfuse Venofer Monitor H&H Acute renal failure Patient's baseline not known Gentle IV fluid hydration Avoid all nephrotoxic drugs and monitor BUN and creatinine Other chronic medical conditions Continue outpatient medications DVT prophylaxis: Lovenox Problem Qualifiers (1) Femur fracture, left: Qualified Codes: S72.002A - Fracture of unspecified part of neck of left femur , initial encounter for closed fracture Prakash Carbajal MD Apr 28, 2017 11:02
[2017-04-28] MEDS: ACETAMINOPHEN 325 MG TAB PO PRN ×2 (12:32→16:21)
[2017-04-28] MEDS: ATORVASTATIN 20 MG TAB PO SCH (20:35)
[2017-04-28] MEDS: SODIUM CHLOR 0.9% 1000 ML INJ 1,000 ML IV SCH (20:36)
[2017-04-29] VITALS (8 sets, daily range): BP systolic 135–161; BP diastolic 62–72; PULSE 63–80; RESP 16–18; TEMP 97–99.8; O2SAT 97–99
[2017-04-29] MEDS: ACETAMINOPHEN/HYDROcodone 325 MG/5 MG TAB PO PRN ×2 (04:00→10:23)
[2017-04-29] MEDS: cloNIDine HCL 0.1 MG TAB PO PRN (04:00)
[2017-04-29] MEDS: LEVOTHYROXINE SODIUM 50 MCG TAB PO SCH (04:27)
[2017-04-29 05:59] LABS: AUTOMATED NEUTROPHIL # 11.9 TH/MM3 (1.8-7.7); BASOPHIL # 0.1 TH/MM3 (0-0.2); BASOPHIL % 0.5 % (0.0-2.0); EOSINOPHIL # 0.1 TH/MM3 (0-0.4); EOSINOPHIL % 0.5 % (0.0-4.0); HEMATOCRIT 26.3 % (39.0-51.0); HEMOGLOBIN 9.1 GM/DL (13.0-17.0); LYMPH % 5.8 % (9.0-44.0); LYMPHOCYTE # 0.8 TH/MM3 (1.0-4.8); MEAN CELL VOLUME 92.9 FL (80.0-100.0); MEAN CORPUSCULAR HEMOGLOBIN 32.1 PG (27.0-34.0); MEAN CORPUSCULAR HGB CONC 34.5 % (32.0-36.0); MEAN PLATELET VOLUME 8.4 FL (7.0-11.0); MONO % 4.9 % (0.0-8.0); MONOCYTE # 0.7 TH/MM3 (0-0.9); NEUT % 88.3 % (16.0-70.0); PLATELET COUNT 120 TH/MM3 (150-450); RED BLOOD COUNT 2.84 MIL/MM3 (4.50-5.90); RED CELL DISTRIBUTION WIDTH 20.2 % (11.6-17.2); WHITE BLOOD COUNT 13.5 TH/MM3 (4.0-11.0)
[2017-04-29] MEDS: DONEPEZIL HCL 23 MG TAB PO SCH (09:00)
[2017-04-29] MEDS: FERROUS SULFATE 325 MG (65 MG ELEMENTAL IRON) TAB PO SCH ×3 (10:02→19:45)
[2017-04-29] MEDS: QUEtiapine FUMARATE 25 MG TAB PO SCH ×3 (10:02→19:44)
[2017-04-29] MEDS: CLOPIDOGREL 75 MG TAB PO SCH (10:03)
[2017-04-29] MEDS: CHOLECALCIFEROL (VIT D3) 5000 UNIT CAP PO SCH (10:03)
[2017-04-29] MEDS: DONEPEZIL HCL 5 MG TAB PO SCH (10:03)
[2017-04-29] MEDS: MEMANTINE HCL 10 MG TAB PO SCH (10:04)
[2017-04-29] MEDS: CALCIUM/VITAMIN D 250 MG/125 U TAB PO SCH ×3 (10:06→19:45)
[2017-04-29] MEDS: metFORMIN HCL 500 MG TAB PO SCH ×2 (10:06→19:45)
[2017-04-29] MEDS: TAMSULOSIN HCL 0.4 MG CAP PO SCH (10:06)
[2017-04-29] MEDS: ENOXAPARIN SODIUM 30 MG/0.3 ML SYRINGE SQ SCH (10:07)
[2017-04-29] MEDS: SODIUM CHLORIDE 0.9% FLUSH 10 ML FLUSH IV FLUSH SCH ×2 (10:08→20:20)
[2017-04-29] MEDS: INSULIN ASPART SUPPLEMENTAL SCALE SQ SCH ×4 (10:21→20:21)
--- NOTE | 2017-04-29 10:34 | PD.ORT.PN ---
Subjective Post Op Day #: 2 Subjective Remarks Patient OOB on bedside commode. Patient c/o mild left hip pain. Patient has dementia. Objective Vitals Vital Signs Date Time Temp Pulse Resp B/P (MAP) Pulse Ox O2 Delivery O2 Flow Rate FiO2 04/29/17 10:12 98 Nasal Cannula 2.00 04/29/17 08:00 97.3 66 16 135/63 (87) 98 04/29/17 04:00 99.8 67 18 161/72 (101) 97 04/28/17 22:59 96.1 68 18 170/74 (106) 100 04/28/17 20:00 96.6 71 16 154/66 (95) 100 04/28/17 16:29 99.5 74 18 141/49 100 04/28/17 16:25 99.5 74 18 141/49 04/28/17 16:00 99.5 74 17 141/49 (79) 100 04/28/17 13:26 99.6 95 16 120/48 100 04/28/17 12:00 98.8 80 17 134/44 (74) 99 I/O 04/28/17 04/28/17 04/28/17 04/29/17 04/29/17 04/29/17 07:00 15:00 23:00 07:00 15:00 23:00 Intake Total 759 ml 485 ml 715 ml 240 ml Balance 759 ml 485 ml 715 ml 240 ml Intake Oral 240 ml 480 ml 240 ml IV Total 519 ml Packed Cells 700 ml Blood Product IV Normal Saline Flush 5 ml 15 ml # Voids 3 5 2 # Bowel Movements 0 0 Result Diagram: 04/29/17 0450 04/28/17 0355 Imaging Last 24 hours Impressions Chest X-Ray 04/27/17 0252 Signed Impressions: Service Date/Time: Thursday, April 27, 2017 03:12 - CONCLUSION: No acute disease. Nick Pena MD Hip and Pelvis X-Ray 04/27/17 0000 Signed Impressions: Service Date/Time: Thursday, April 27, 2017 03:09 - CONCLUSION: Left proximal femur fracture. Nick Pena MD Objective Remarks affect blunted L hip dressed: clean with no drainage, mild swelling, moves toes, BCR, calf with no swelling/NT Dressing changed with no complications or concerns. Assessment & Plan Ortho Post Op Day #: 2 Problem List: Assessment and Plan POD 2 s/p IMN left hip -WBAT -CM for SNF placement -daily dressing changs POD 2 -DVT prophylaxis with lovenox - low HCT, received 2 units of PRBCs. H &H improved. -f/u with Dr Worley or PA in 2 weeks Johnny Gerard Apr 29, 2017 10:33
--- NOTE | 2017-04-29 10:38 | HHI.PR ---
Subjective Remarks Follow-up left femur fracture status post repair/now postoperatively anemia of acute blood loss 04/28/17-patient seen and examined,H/H dropped however patient has no report of GI bleeding. Pain to the left hip more tolerable. Afebrile 04/29/17-patient seen and examined, pain to left hip tolerable. H&H improved status post transfusion Objective Vitals Vital Signs Date Time Temp Pulse Resp B/P (MAP) Pulse Ox O2 Delivery O2 Flow Rate FiO2 04/29/17 10:12 98 Nasal Cannula 2.00 04/29/17 08:00 97.3 66 16 135/63 (87) 98 04/29/17 04:00 99.8 67 18 161/72 (101) 97 04/28/17 22:59 96.1 68 18 170/74 (106) 100 04/28/17 20:00 96.6 71 16 154/66 (95) 100 04/28/17 16:29 99.5 74 18 141/49 100 04/28/17 16:25 99.5 74 18 141/49 04/28/17 16:00 99.5 74 17 141/49 (79) 100 04/28/17 13:26 99.6 95 16 120/48 100 04/28/17 12:00 98.8 80 17 134/44 (74) 99 I/O 04/28/17 04/28/17 04/28/17 04/29/17 04/29/17 04/29/17 07:00 15:00 23:00 07:00 15:00 23:00 Intake Total 759 ml 485 ml 715 ml 240 ml Balance 759 ml 485 ml 715 ml 240 ml Intake Oral 240 ml 480 ml 240 ml IV Total 519 ml Packed Cells 700 ml Blood Product IV Normal Saline Flush 5 ml 15 ml # Voids 3 5 2 # Bowel Movements 0 0 Result Diagram: 04/29/17 0450 04/28/17 0355 Imaging Last Impressions Chest X-Ray 04/27/17 0252 Signed Impressions: Service Date/Time: Thursday, April 27, 2017 03:12 - CONCLUSION: No acute disease. Nick Pena MD Hip and Pelvis X-Ray 04/27/17 0000 Signed Impressions: Service Date/Time: Thursday, April 27, 2017 03:09 - CONCLUSION: Left proximal femur fracture. Nick Pena MD Hip X-Ray 04/27/17 0000 Signed Impressions: Service Date/Time: Thursday, April 27, 2017 07:57 - CONCLUSION: 1. Status post left hip ORIF, as above. Porfirio Fleming MD Objective Remarks GENERAL: NAD SKIN: Warm and dry. HEAD: Normocephalic. EYES: No scleral icterus. No injection or drainage. NECK: Supple, trachea midline. No JVD or lymphadenopathy. CARDIOVASCULAR: Regular rate and rhythm without murmurs, gallops, or rubs. RESPIRATORY: Breath sounds equal bilaterally. No accessory muscle use. GASTROINTESTINAL: Abdomen soft, non-tender, nondistended. MUSCULOSKELETAL: No cyanosis, or edema. left hip repair-neurovascular BACK: Nontender without obvious deformity. No CVA tenderness. A/P Problem List: (1) Femur fracture, left ICD Code: S72.92XA - Unspecified fracture of left femur, initial encounter for closed fracture Status: Acute (2) Postoperative anemia due to acute blood loss ICD Code: D62 - Acute posthemorrhagic anemia Assessment and Plan 81-year-old man with Left femur fracture Orthopedic surgery ff Status post Left hip reduction and intramedullary nail fixation Pain management accordingly, Lovenox for DVT prophylaxis Postoperative anemia due to acute blood loss Transfused 2 units packed red blood cell 04/28/17 Monitor H&H Diabetes type 2 Continue metformin and insulin sliding scale Macrocytic anemia Iron study noted with evidence of DANNY Monitor H&H Acute renal failure Patient's baseline not known Gentle IV fluid hydration Avoid all nephrotoxic drugs and monitor BUN and creatinine Other chronic medical conditions Continue outpatient medications DVT prophylaxis: Lovenox Discharge Planning Likely discharge in 1 day to SNF Problem Qualifiers (1) Femur fracture, left: Qualified Codes: S72.002A - Fracture of unspecified part of neck of left femur , initial encounter for closed fracture Prakash Carbajal MD Apr 29, 2017 10:38
[2017-04-29] MEDS: ATORVASTATIN 20 MG TAB PO SCH (20:20)
[2017-04-30 00:25] VITALS: BP 153/71; PULSE 72; RESP 18; TEMP 98; O2SAT 99
[2017-04-30] MEDS: SODIUM CHLOR 0.9% 1000 ML INJ 1,000 ML IV SCH (00:31)
[2017-04-30] MEDS: ACETAMINOPHEN/HYDROcodone 325 MG/5 MG TAB PO PRN ×3 (03:26→13:01)
[2017-04-30 04:25] VITALS: BP 172/72; PULSE 77; RESP 18; TEMP 99.3; O2SAT 98
[2017-04-30] MEDS: LEVOTHYROXINE SODIUM 50 MCG TAB PO SCH (05:56)
--- NOTE | 2017-04-30 06:47 | PD.ORT.PN ---
Subjective Subjective Remarks POD 3 s/p IMN left hip resting comfortably. no changes Objective Vitals Vital Signs Date Time Temp Pulse Resp B/P (MAP) Pulse Ox O2 Delivery O2 Flow Rate FiO2 04/30/17 04:25 99.3 77 18 172/72 (105) 98 04/30/17 00:25 98.0 72 18 153/71 (98) 99 04/29/17 20:20 97.6 75 17 158/71 (100) 98 04/29/17 17:39 97 Nasal Cannula 2.00 04/29/17 16:00 97.2 68 18 154/68 (96) 99 04/29/17 12:44 Room Air 04/29/17 12:00 97.0 70 18 137/62 (87) 97 04/29/17 11:47 80 04/29/17 10:12 98 Nasal Cannula 2.00 04/29/17 08:00 63 04/29/17 08:00 97.3 66 16 135/63 (87) 98 I/O 04/29/17 04/29/17 04/29/17 04/30/17 04/30/17 04/30/17 07:00 15:00 23:00 07:00 15:00 23:00 Intake Total 240 ml 720 ml 120 ml Balance 240 ml 720 ml 120 ml Intake Oral 240 ml 720 ml 120 ml # Voids 2 1 2 3 # Bowel Movements 0 1 1 0 Result Diagram: 04/29/17 0450 04/28/17 0355 Imaging Last 24 hours Impressions Chest X-Ray 04/27/17 0252 Signed Impressions: Service Date/Time: Thursday, April 27, 2017 03:12 - CONCLUSION: No acute disease. Nick Pena MD Hip and Pelvis X-Ray 04/27/17 0000 Signed Impressions: Service Date/Time: Thursday, April 27, 2017 03:09 - CONCLUSION: Left proximal femur fracture. Nick Pena MD Objective Remarks affect blunted L hip dressed: clean with no drainage, mild swelling, moves toes, BCR, calf with no swelling/NT Dressing changed with no complications or concerns. Assessment & Plan Assessment and Plan POD 3 s/p IMN left hip -WBAT -CM for SNF placement -daily dressing changs POD 2 -DVT prophylaxis with lovenox - low HCT, received 2 units of PRBCs. H &H improved. -f/u with Dr Worley or PA in 2 weeks Luis Torres/First Celeste HENDERSON Apr 30, 2017 06:47
[2017-04-30 07:39] VITALS: BP 180/78; PULSE 90; RESP 18; TEMP 97.8; O2SAT 100
[2017-04-30] MEDS: INSULIN ASPART SUPPLEMENTAL SCALE SQ SCH (08:00)
[2017-04-30] MEDS: SODIUM CHLORIDE 0.9% FLUSH 10 ML FLUSH IV FLUSH SCH (09:00)
[2017-04-30] MEDS: DONEPEZIL HCL 23 MG TAB PO SCH (09:00)
[2017-04-30] MEDS: MEMANTINE HCL 10 MG TAB PO SCH (09:12)
[2017-04-30] MEDS: metFORMIN HCL 500 MG TAB PO SCH (09:12)
[2017-04-30] MEDS: ENOXAPARIN SODIUM 30 MG/0.3 ML SYRINGE SQ SCH (09:12)
[2017-04-30] MEDS: DONEPEZIL HCL 5 MG TAB PO SCH (09:13)
[2017-04-30] MEDS: CHOLECALCIFEROL (VIT D3) 5000 UNIT CAP PO SCH (09:13)
[2017-04-30] MEDS: FERROUS SULFATE 325 MG (65 MG ELEMENTAL IRON) TAB PO SCH ×2 (09:13→13:01)
[2017-04-30] MEDS: TAMSULOSIN HCL 0.4 MG CAP PO SCH (09:13)
[2017-04-30] MEDS: cloNIDine HCL 0.1 MG TAB PO PRN (09:13)
[2017-04-30] MEDS: QUEtiapine FUMARATE 25 MG TAB PO SCH ×2 (09:13→13:01)
[2017-04-30] MEDS: CLOPIDOGREL 75 MG TAB PO SCH (09:13)
[2017-04-30] MEDS: CALCIUM/VITAMIN D 250 MG/125 U TAB PO SCH ×2 (09:13→13:01)
[2017-04-30 11:24] VITALS: BP 129/59; PULSE 93; RESP 18; TEMP 97.6; O2SAT 96
[2017-04-30 11:41] VITALS: PULSE 83
--- NOTE | 2017-04-30 11:45 | HHI.PR ---
Subjective Remarks Follow-up left femur fracture status post repair/now postoperatively anemia of acute blood loss 04/28/17-patient seen and examined,H/H dropped however patient has no report of GI bleeding. Pain to the left hip more tolerable. Afebrile 04/29/17-patient seen and examined, pain to left hip tolerable. H&H improved status post transfusion 04/30/17-patient seen and examined, no acute event overnight, Clear by orthopedic surgery for discharge Objective Vitals Vital Signs Date Time Temp Pulse Resp B/P (MAP) Pulse Ox O2 Delivery O2 Flow Rate FiO2 04/30/17 11:41 83 04/30/17 11:24 97.6 93 18 129/59 (82) 96 04/30/17 08:00 Room Air 04/30/17 07:39 97.8 90 18 180/78 (112) 100 04/30/17 04:25 99.3 77 18 172/72 (105) 98 04/30/17 00:25 98.0 72 18 153/71 (98) 99 04/29/17 20:20 97.6 75 17 158/71 (100) 98 04/29/17 17:39 97 Nasal Cannula 2.00 04/29/17 16:00 97.2 68 18 154/68 (96) 99 04/29/17 12:44 Room Air 04/29/17 12:00 97.0 70 18 137/62 (87) 97 04/29/17 11:47 80 I/O 04/29/17 04/29/17 04/29/17 04/30/17 04/30/17 04/30/17 07:00 15:00 23:00 07:00 15:00 23:00 Intake Total 240 ml 720 ml 120 ml Balance 240 ml 720 ml 120 ml Intake Oral 240 ml 720 ml 120 ml # Voids 2 1 2 3 # Bowel Movements 0 1 1 0 Result Diagram: 04/29/17 0450 04/28/17 0355 Imaging Last Impressions Chest X-Ray 04/27/17 0252 Signed Impressions: Service Date/Time: Thursday, April 27, 2017 03:12 - CONCLUSION: No acute disease. Nick Pena MD Hip and Pelvis X-Ray 04/27/17 0000 Signed Impressions: Service Date/Time: Thursday, April 27, 2017 03:09 - CONCLUSION: Left proximal femur fracture. Nick Pena MD Hip X-Ray 04/27/17 0000 Signed Impressions: Service Date/Time: Thursday, April 27, 2017 07:57 - CONCLUSION: 1. Status post left hip ORIF, as above. Porfirio Fleming MD Objective Remarks GENERAL: NAD SKIN: Warm and dry. HEAD: Normocephalic. EYES: No scleral icterus. No injection or drainage. NECK: Supple, trachea midline. No JVD or lymphadenopathy. CARDIOVASCULAR: Regular rate and rhythm without murmurs, gallops, or rubs. RESPIRATORY: Breath sounds equal bilaterally. No accessory muscle use. GASTROINTESTINAL: Abdomen soft, non-tender, nondistended. MUSCULOSKELETAL: No cyanosis, or edema. left hip repair-neurovascular BACK: Nontender without obvious deformity. No CVA tenderness. Procedures Left hip reduction and intramedullary nail fixation A/P Problem List: (1) Femur fracture, left ICD Code: S72.92XA - Unspecified fracture of left femur, initial encounter for closed fracture Status: Acute (2) Postoperative anemia due to acute blood loss ICD Code: D62 - Acute posthemorrhagic anemia Assessment and Plan 81-year-old man with Left femur fracture Orthopedic surgery ff Status post Left hip reduction and intramedullary nail fixation Pain management accordingly, Lovenox for DVT prophylaxis PT to treat Postoperative anemia due to acute blood loss Transfused 2 units packed red blood cell 04/28/17 Monitor H&H Diabetes type 2 Continue metformin and insulin sliding scale Macrocytic anemia Iron study noted with evidence of DANNY Monitor H&H Acute renal failure Patient's baseline not known Gentle IV fluid hydration Avoid all nephrotoxic drugs and monitor BUN and creatinine Other chronic medical conditions Continue outpatient medications DVT prophylaxis: Lovenox Discharge Planning Likely discharge in 1 day to SNF Problem Qualifiers (1) Femur fracture, left: Qualified Codes: S72.002A - Fracture of unspecified part of neck of left femur , initial encounter for closed fracture Prakash Carbajal MD Apr 30, 2017 11:45
--- NOTE | 2017-04-30 11:54 | HHI.DS ---
Discharge Summary Admission Date Apr 27, 2017 at 04:16 Discharge Date: Apr 30, 2017 Admitting Diagnosis Hip fracture, Left. (1) Femur fracture, left ICD Code: S72.92XA - Unspecified fracture of left femur, initial encounter for closed fracture Status: Acute (2) Postoperative anemia due to acute blood loss ICD Code: D62 - Acute posthemorrhagic anemia Procedures Left hip reduction and intramedullary nail fixation Brief History - From Admission 81-year-old man with a history of diabetes type 2, dementia was brought to the ED yesterday after a mechanical fall with patient complaining of left hip pain which was rated at a time above 10 in intensity. Hip x-ray was ordered in his local skilled nursing facility and was positive for left femur fracture. This morning, patient was taking to the operating room and underwent left hip reduction and intramedullary nail fixation. Patient was seen postoperatively in his room, and complained of left hip pain. He denies any chest pain or shortness of breath. Vitals stable. No other issues CBC/BMP: 04/29/17 0450 04/28/17 0355 Significant Findings Laboratory Tests Test 04/28/17 03:55 04/28/17 06:35 04/29/17 04:50 Blood Urea Nitrogen 34 MG/DL (7-18) Creatinine 1.61 MG/DL (0.60-1.30) Estimat Glomerular Filtration Rate 50 ML/MIN (>89) White Blood Count 12.7 TH/MM3 (4.0-11.0) 13.5 TH/MM3 (4.0-11.0) Red Blood Count 1.78 MIL/MM3 (4.50-5.90) 2.84 MIL/MM3 (4.50-5.90) Hemoglobin 6.2 GM/DL (13.0-17.0) 9.1 GM/DL (13.0-17.0) Hematocrit 18.4 % (39.0-51.0) 26.3 % (39.0-51.0) Mean Corpuscular Volume 102.8 FL (80.0-100.0) Mean Corpuscular Hemoglobin 34.9 PG (27.0-34.0) Platelet Count 148 TH/MM3 (150-450) 120 TH/MM3 (150-450) Neutrophils (%) (Auto) 85.5 % (16.0-70.0) 88.3 % (16.0-70.0) Lymphocytes (%) (Auto) 6.6 % (9.0-44.0) 5.8 % (9.0-44.0) Neutrophils # (Auto) 10.8 TH/MM3 (1.8-7.7) 11.9 TH/MM3 (1.8-7.7) Lymphocytes # (Auto) 0.8 TH/MM3 (1.0-4.8) 0.8 TH/MM3 (1.0-4.8) Red Cell Distribution Width 20.2 % (11.6-17.2) Imaging Last Impressions Chest X-Ray 04/27/17 0252 Signed Impressions: Service Date/Time: Thursday, April 27, 2017 03:12 - CONCLUSION: No acute disease. Nick Pena MD Hip and Pelvis X-Ray 04/27/17 0000 Signed Impressions: Service Date/Time: Thursday, April 27, 2017 03:09 - CONCLUSION: Left proximal femur fracture. Nick Pena MD Hip X-Ray 04/27/17 0000 Signed Impressions: Service Date/Time: Thursday, April 27, 2017 07:57 - CONCLUSION: 1. Status post left hip ORIF, as above. Porfirio Fleming MD PE at Discharge GENERAL: NAD SKIN: Warm and dry. HEAD: Normocephalic. EYES: No scleral icterus. No injection or drainage. NECK: Supple, trachea midline. No JVD or lymphadenopathy. CARDIOVASCULAR: Regular rate and rhythm without murmurs, gallops, or rubs. RESPIRATORY: Breath sounds equal bilaterally. No accessory muscle use. GASTROINTESTINAL: Abdomen soft, non-tender, nondistended. MUSCULOSKELETAL: No cyanosis, or edema. left hip repair-neurovascular BACK: Nontender without obvious deformity. No CVA tenderness. Hospital Course While in the hospital, patient was treated for: Left femur fracture Orthopedic surgery ff Status post Left hip reduction and intramedullary nail fixation Pain management was provided accordingly, Lovenox for DVT prophylaxis PT was consulted for therapy Postoperative anemia due to acute blood loss Patient was Transfused 2 units packed red blood cell 04/28/17 Diabetes type 2 He was continued on his oral hypoglycemic agent including metformin and started on insulin sliding scale Macrocytic anemia Iron study noted with evidence of DANNY Resume iron sulfate on discharge Acute renal failure Patient's baseline not known Gentle IV fluid hydration was given Avoid all nephrotoxic drugs and monitor BUN and creatinine Other chronic medical conditions He was continued on his outpatient medications DVT prophylaxis: Lovenox Pt Condition on Discharge: Good Discharge Disposition: Discharge to SNF Discharge Time: > 30 minutes Discharge Instructions DIET: Follow Instructions for: Diabetic Diet Activities you can perform: Regular-No Restrictions Follow up Ref[facility] PCP Follow-up - 2-3 Days New Medications: Calcium Carbonate-Vitamin D (Calcium 600+D 200) 600-200 Mg-Unit Tab 1 TAB PO BID for Nutritional Supplement for 30 Days, #60 TAB 0 Refills Cholecalciferol (Vitamin D3) 2,000 Unit Cap 2000 UNITS PO DAILY for Nutritional Supplement, #60 CAP 0 Refills Ergocalciferol (Ergocalciferol) 50,000 Unit Cap 53891 UNITS PO Q7D for Nutritional Supplement, #8 CAP Hydrocodone-Acetaminophen ([place]) 5 Mg-325 Mg Tab 1 TAB PO Q4H PRN for PAIN, #60 TAB 0 Refills Rivaroxaban (Xarelto) 10 Mg Tab 10 MG PO DAILY for Blood Clot Prevention for 14 Days, #14 TAB 0 Refills Walker/Adult/Folding (Walker/Adult/Folding) 1 Mis Mis EA .XX DIRECTED, #1 0 Refills Continued Medications: Acetaminophen (Tylenol) 325 Mg Tab 650 MG PO Q8HR PRN for ANGINA, TAB 0 Refills Amlodipine (Amlodipine) 10 Mg Tab 10 MG PO DAILY for Blood Pressure Management, #30 TAB 0 Refills Atorvastatin (Atorvastatin) 20 Mg Tab 20 MG PO HS for Cholesterol Management, #30 TAB 0 Refills Clopidogrel (Clopidogrel) 75 Mg Tab 75 MG PO DAILY for Blood Clot Prevention, #30 TAB 0 Refills Econazole Topical (Econazole Topical) 1% Cream 1 APPLIC TOPICAL DAILY for Fungal Infection, #1 TUBE 0 Refills Ferrous Sulfate (Ferrous Sulfate) 325 Mg (65 Mg Iron) Tablet 325 MG PO TIDPC for Nutritional Supplement, #90 TAB 0 Refills Levothyroxine (Levothyroxine) 50 Mcg Tab 50 MCG PO DAILY for Thyroid, #30 TAB 0 Refills Memantine-Donepezil (Namzaric) 28-10 Mg Cap 1 CAP PO DAILY for Alzheimer Dementia, #30 CAP 0 Refills Metformin (Glucophage) 500 Mg Tab 250 MG PO BIDPC for Blood Sugar Management, #60 TAB 0 Refills Nitroglycerin SL (Nitrostat SL) 0.4 Mg Subl 0.4 MG SL DIRECTED PRN for CHEST PAIN, #100 TAB.SL 0 Refills 1 tablet under the tongue as needed for chest pain. Repeat every 5 minutes for a total of 3 DOSES or call 911 if NO relief. Quetiapine (Seroquel) 25 Mg Tab 25 MG PO TID, #60 TAB 0 Refills Tamsulosin (Tamsulosin) 0.4 Mg Cap 0.4 MG PO DAILY for Manage Prostate Problems, #30 CAP 0 Refills Trazodone (Trazodone) 50 Mg Tab 75 MG PO HS for Control Depression, #30 TAB 0 Refills Discontinued Medications: Tuberculin Ppd (Tubersol) 5 Unit/0.1 Ml Syringe 0.1 ML I-DERMAL .ONCE for Tuaberculin Test, #1 SYRINGE 0 Refills Prakash Carbajal MD Apr 30, 2017 11:54
== END 2017-04-30 17:03 | DRG 481 ==
LOC: NEPE 02:14 → NEDA 04:16 → N06A 05:54
PROVIDERS: ADMIT Hospitalist; ATTEND Hospitalist
PROC: 0QS706Z Reposition Left Upper Femur with Intramedullary Internal Fixation Device, Open Approach (ICD-10-PCS; principal; 2017-04-27 07:24)
PROC: 30233N1 Transfusion of Nonautologous Red Blood Cells into Peripheral Vein, Percutaneous Approach (ICD-10-PCS; 2017-04-28)
DX: S72.142A Displaced intertrochanteric fracture of left femur, initial encounter for closed fracture (principal); N17.9 Acute kidney failure, unspecified; F03.90 Unspecified dementia, unspecified severity, without behavioral disturbance, psychotic disturbance, mood disturbance, and anxiety; E11.9 Type 2 diabetes mellitus without complications; I10 Essential (primary) hypertension; D53.9 Nutritional anemia, unspecified; D62 Acute posthemorrhagic anemia; E03.9 Hypothyroidism, unspecified; W18.30XA Fall on same level, unspecified, initial encounter; I25.10 Atherosclerotic heart disease of native coronary artery without angina pectoris; F41.9 Anxiety disorder, unspecified; Z79.84 Long term (current) use of oral hypoglycemic drugs; Y92.129 Unspecified place in nursing home as the place of occurrence of the external cause
CPT/HCPCS: 36430; 71045; 73502; 76000; 80048; 80053; 82306; 82607; 82746; 82948; 83540; 83550; 85025; 85610; 85730; 86850; 86900; 86901; 86920; 93005; C1713; J0690; J1580; J1650; J1815; J1940; J2270; J2405; J3010; J3370; J7030; J7050; J7120; P9016

== ENCOUNTER 2017-06-18 16:32 | Inpatient (IN) | payer MEDICARE, OTHER ==
[~2017-06-18] VITALS: Ht 162.6 cm; Wt 72.7 kg
[~2017-06-18 16:32] MED LIST: AMLO10TA2 PO; ATOR20TA15 PO; CALCTAB19 PO; CLOP75TA PO; ECON0.052 TOPICAL; FERR325T18 PO; LEVO50TA4 PO; MEMA1CAP2 PO; METF500 PO; NITR0.4S SL; NORC5TAB PO; SERO25TA PO; TAMS0.4C4 PO; TRAZ50TA12 PO; TYLE325T PO; VITA2000 PO; VITA500012 PO; WALKER/ADULT/FO1 MIS; XARE10TA PO
[2017-06-18 16:41] VITALS: BP 167/73; PULSE 98; RESP 18; TEMP 97.6; O2SAT 98
--- NOTE | 2017-06-18 17:29 | RADRPT ---
EXAM DATE/TIME: 06/18/2017 16:59 [facility] COMPARISON: No previous studies available for comparison. INDICATIONS : Evaluate for pneumonia, pneumothorax, and communicable disease. Patient and family state existing hip injury. Sent from physicians office. MEDICAL HISTORY : None. SURGICAL HISTORY : Left hip fracture repair. ENCOUNTER: Initial ACUITY: 1 day PAIN SCORE: 4/10 LOCATION: Right hip FINDINGS: PA and lateral views of the chest demonstrate the lungs to be symmetrically aerated without evidence of mass, infiltrate or effusion. The cardiomediastinal contours are unremarkable. Osseous structure s are intact. CONCLUSION: No acute disease. Ryan Short MD on June 18, 2017 at 17:26 Board Certified Radiologist. This report was verified electronically.
[2017-06-18 17:53] LABS: AUTOMATED NEUTROPHIL # 8.8 TH/MM3 (1.8-7.7); BASOPHIL % 0.4 % (0.0-2.0); HEMOGLOBIN 11.1 GM/DL (13.0-17.0); LYMPH % 3.4 % (9.0-44.0); LYMPHOCYTE # 0.3 TH/MM3 (1.0-4.8); MEAN CELL VOLUME 93.3 FL (80.0-100.0); MEAN CORPUSCULAR HEMOGLOBIN 31.3 PG (27.0-34.0); MEAN CORPUSCULAR HGB CONC 33.6 % (32.0-36.0); MEAN PLATELET VOLUME 7.4 FL (7.0-11.0); MONO % 5.4 % (0.0-8.0); MONOCYTE # 0.5 TH/MM3 (0-0.9); NEUT % 90.8 % (16.0-70.0); PLATELET COUNT 615 TH/MM3 (150-450); RED BLOOD COUNT 3.53 MIL/MM3 (4.50-5.90); RED CELL DISTRIBUTION WIDTH 18.5 % (11.6-17.2); WHITE BLOOD COUNT 9.7 TH/MM3 (4.0-11.0)
[2017-06-18 18:05] LABS: PROTHROMBIN TIME - PATIENT 10.5 SEC (9.8-11.6)
[2017-06-18 18:10] LABS: ALBUMIN 3.6 GM/DL (3.4-5.0); AST (GOT) 21 U/L (15-37); BICARBONATE 29.3 MEQ/L (21.0-32.0); BLOOD UREA NITROGEN 24 MG/DL (7-18); CALCIUM 9.8 MG/DL (8.5-10.1); CHLORIDE 99 MEQ/L (98-107); CREATININE 1.28 MG/DL (0.60-1.30); GLOMERULAR FILTRATION RATE 65 ML/MIN (>89); GLUCOSE,RANDOM 234 MG/DL (74-106); SODIUM (NA) 138 MEQ/L (136-145)
[2017-06-18 18:15] LABS: ALKALINE PHOSPHATASE 226 U/L (45-117); ALT (GPT) 21 U/L (12-78); TOTAL BILIRUBIN ADULT 0.8 MG/DL (0.2-1.0); TOTAL PROTEIN 8.7 GM/DL (6.4-8.2)
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
[2017-06-18] MEDS ORDERED: MORPHINE SULFATE 2 MG/ML INJ IV PUSH ONE (19:45)
[2017-06-18] MEDS ORDERED: ONDANSETRON HCL 4 MG/2 ML VIAL IV PUSH ONE (19:45)
[2017-06-18] MEDS: SODIUM CHLOR 0.9% 1000 ML INJ 1,000 ML IV SCH (19:45)
[2017-06-18] MEDS ORDERED: PROCHLORPERAZINE 25 MG SUPP RECTAL PRN (20:30)
[2017-06-18] MEDS ORDERED: SODIUM CHLORIDE 0.9% FLUSH 10 ML FLUSH IV FLUSH PRN (20:30)
[2017-06-18] MEDS ORDERED: ACETAMINOPHEN 325 MG TAB PO PRN (20:30)
[2017-06-18] MEDS ORDERED: MORPHINE SULFATE 2 MG/ML INJ IV PUSH PRN (20:30)
[2017-06-18] MEDS ORDERED: NALOXONE HCL 0.4 MG/ML AMP IV PUSH PRN (20:30)
[2017-06-18] MEDS ORDERED: MAGNESIUM HYDROXIDE SUSP 30 ML CUP PO PRN (20:30)
[2017-06-18] MEDS ORDERED: GLUCAGON 1 MG/ML VIAL OTHER PRN (20:30)
[2017-06-18] MEDS ORDERED: SENNOSIDES 8.6 MG TAB PO PRN (20:30)
[2017-06-18] MEDS ORDERED: DEXTROSE 50% IN WATER 50 ML VIAL(D50) IV PUSH PRN (20:30)
[2017-06-18] MEDS ORDERED: BISACODYL 10 MG SUPP RECTAL PRN (20:30)
[2017-06-18] MEDS: INSULIN ASPART SUPPLEMENTAL SCALE SQ SCH (21:00)
[2017-06-18] MEDS ORDERED: PILL SPLITTER OTHER PRN (21:15)
--- NOTE | 2017-06-18 23:46 | HHI.HP ---
[facility] Unknown Admission Diagnosis Right intertrochanteric hip fracture Diagnoses: Travel History International Travel<30 Days: No Contact w/Intl Traveler <30 Da: No Traveled to Known Affected Are: No History of Present Illness 82-year-old male with a past medical history significant for hypertension, diabetes mellitus, hyperlipidemia, CAD, dementia and a history of prostate cancer presents to the emergency department for evaluation of right hip pain. The patient lives in an [place] and fell approximately 8 days ago when he was standing from his wheelchair. He and secondary to his dementia however his is bedside and tells me he has been complaining of pain in his right hip and leg for the past 8 days. He is status post left hip placement status post fracture on 04/27/17. He was seen in clinic today by Dr. Worley who ordered an outpatient x-rays which revealed a right intertrochanteric femur fracture. Sent to the emergency department for further evaluation and treatment. The patient denies any chest pain or shortness of breath. Denies abdominal pain or nausea/vomiting/diarrhea. No lateralizing signs/symptoms. No fever/chills. He complains of pain in his right hip. Review of Systems Except as stated in HPI: all other systems reviewed are Neg Past Family Social History Past Medical History hypertension, diabetes mellitus, hyperlipidemia, CAD, dementia and a history of prostate cancer Past Surgical History Left hip replacement on 04/27/17 Stents 1 in 2011 Prostatectomy Reported Medications Reported Meds & Active Scripts Active Calcium 600+D 200 (Calcium Carbonate-Vitamin D) 600-200 Mg-Unit Tab 1 Tab PO BID 30 Days Vitamin D3 (Cholecalciferol) 2,000 Unit Cap 2,000 Units PO DAILY Ergocalciferol 50,000 Unit Cap 50,000 Units PO Q7D Xarelto (Rivaroxaban) 10 Mg Tab 10 Mg PO DAILY 14 Days [place] (Hydrocodone-Acetaminophen) 5 Mg-325 Mg Tab 1 Tab PO Q4H PRN Walker/Adult/Folding (Device) 1 Mis Mis Ea .XX DIRECTED Reported Tylenol (Acetaminophen) 325 Mg Tab 650 Mg PO Q8HR PRN Trazodone (Trazodone HCl) 50 Mg Tab 75 Mg PO HS Tamsulosin (Tamsulosin HCl) 0.4 Mg Cap 0.4 Mg PO DAILY Seroquel (Quetiapine Fumarate) 25 Mg Tab 25 Mg PO TID Nitrostat SL (Nitroglycerin) 0.4 Mg Subl 0.4 Mg SL DIRECTED PRN 1 tablet under the tongue as needed for chest pain. Repeat every 5 minutes for a total of 3 DOSES or call 911 if NO relief. Namzaric (Memantine-Donepezil) 28-10 Mg Cap 1 Cap PO DAILY Levothyroxine (Levothyroxine Sodium) 50 Mcg Tab 50 Mcg PO DAILY Glucophage (Metformin HCl) 500 Mg Tab 250 Mg PO BIDPC Econazole Topical (Econazole Nitrate) 1% Cream 1 Applic TOPICAL DAILY Ferrous Sulfate 325 Mg (65 Mg Iron) Tablet 325 Mg PO TIDPC Clopidogrel (Clopidogrel Bisulfate) 75 Mg Tab 75 Mg PO DAILY Atorvastatin (Atorvastatin Calcium) 20 Mg Tab 20 Mg PO HS Amlodipine (Amlodipine Besylate) 10 Mg Tab 10 Mg PO DAILY Allergies: Coded Allergies: No Known Allergies (Unverified , 04/27/17) Family History Positive for diabetes and coronary artery disease. Social History Negative for alcohol, tobacco and illicit drugs Physical Exam Vital Signs Vital Signs Date Time Temp Pulse Resp B/P (MAP) Pulse Ox O2 Delivery O2 Flow Rate FiO2 06/18/17 16:41 97.6 98 18 167/73 (104) 98 Physical Exam GENERAL: Thin, male lying in bed SKIN: No rashes, ecchymoses or lesions. Cool and dry. HEAD: Atraumatic. Normocephalic. No temporal or scalp tenderness. EYES: Pupils equal round and reactive. Extraocular motions intact. No scleral icterus. No injection or drainage. ENT: Nose without bleeding, purulent drainage or septal hematoma. Throat without erythema, tonsillar hypertrophy or exudate. Uvula midline. Airway patent. NECK: Trachea midline. No JVD or lymphadenopathy. Supple, nontender, no meningeal signs. CARDIOVASCULAR: Regular rate and rhythm without murmurs, gallops, or rubs. RESPIRATORY: Clear to auscultation. Breath sounds equal bilaterally. No wheezes , rales, or rhonchi. GASTROINTESTINAL: Abdomen soft, non-tender, nondistended. No hepato-splenomegaly , or palpable masses. No guarding. MUSCULOSKELETAL: Neurovascularly intact. NEUROLOGICAL: Awake and alert. Cranial nerves II through XII intact. Motor and sensory grossly within normal limits. Normal speech. Laboratory Laboratory Tests Test 06/18/17 17:29 White Blood Count 9.7 Red Blood Count 3.53 Hemoglobin 11.1 Hematocrit 33.0 Mean Corpuscular Volume 93.3 Mean Corpuscular Hemoglobin 31.3 Mean Corpuscular Hemoglobin Concent 33.6 Red Cell Distribution Width 18.5 Platelet Count 615 Mean Platelet Volume 7.4 Neutrophils (%) (Auto) 90.8 Lymphocytes (%) (Auto) 3.4 Monocytes (%) (Auto) 5.4 Eosinophils (%) (Auto) 0.0 Basophils (%) (Auto) 0.4 Neutrophils # (Auto) 8.8 Lymphocytes # (Auto) 0.3 Monocytes # (Auto) 0.5 Eosinophils # (Auto) 0.0 Basophils # (Auto) 0.0 CBC Comment DIFF FINAL Differential Comment Prothrombin Time 10.5 Prothromb Time International Ratio 1.0 Activated Partial Thromboplast Time 24.8 Blood Urea Nitrogen 24 Creatinine 1.28 Random Glucose 234 Total Protein 8.7 Albumin 3.6 Calcium Level 9.8 Alkaline Phosphatase 226 Aspartate Amino Transf (AST/SGOT) 21 Alanine Aminotransferase (ALT/SGPT) 21 Total Bilirubin 0.8 Sodium Level 138 Potassium Level 4.2 Chloride Level 99 Carbon Dioxide Level 29.3 Anion Gap 10 Estimat Glomerular Filtration Rate 65 Result Diagram: 06/18/17 1729 06/18/17 172 Caprini VTE Risk Assessment Caprini VTE Risk Assessment: Mod/High Risk (score >= 2) Caprini Risk Assessment Model Point Value = 1 Point Value = 2 Point Value = 3 Point Value = 5 Age 41-60 Minor surgery BMI > 25 kg/m2 Swollen legs Varicose veins or History of unexplained or recurrent spontaneous Oral contraceptives or hormone replacement Sepsis (< 1 month) Serious lung disease, including pneumonia (< 1 month) Abnormal pulmonary function Acute myocardial infarction Congestive heart failure (< 1 month) History of inflammatory bowel disease Medical patient at bed rest Age 61-74 Arthroscopic surgery Major open surgery (> 45 min) Laparoscopic surgery (> 45 min) Malignancy Confined to bed (> 72 hours) Immobilizing plaster cast Central venous access Age >= 75 History of VTE Family history of VTE Factor V Leiden Prothrombin [id number] Lupus anticoagulant Anticardiolipin antibodies Elevated serum homocysteine Heparin-induced thrombocytopenia Other congenital or acquired thrombophilia Stroke (< 1 month) Elective arthroplasty Hip, pelvis, or leg fracture Acute spinal cord injury (< 1 month) Prophylaxis Regimen Total Risk Factor Score Risk Level Prophylaxis Regimen 0-1 Low Early ambulation 2 Moderate Order ONE of the following: *Sequential Compression Device (SCD) *Heparin 5000 units SQ BID 3-4 Higher Order ONE of the following medications: *Heparin 5000 units SQ TID *Enoxaparin/Lovenox 40 mg SQ daily (WT < 150 kg, CrCl > 30 mL/min) *Enoxaparin/Lovenox 30 mg SQ daily (WT < 150 kg, CrCl > 10-29 mL/min) *Enoxaparin/Lovenox 30 mg SQ BID (WT < 150 kg, CrCl > 30 mL/min) AND/OR *Sequential Compression Device (SCD) 5 or more Highest Order ONE of the following medications: *Heparin 5000 units SQ TID (Preferred with Epidurals) *Enoxaparin/Lovenox 40 mg SQ daily (WT < 150 kg, CrCl > 30 mL/min) *Enoxaparin/Lovenox 30 mg SQ daily (WT < 150 kg, CrCl > 10-29 mL/min) *Enoxaparin/Lovenox 30 mg SQ BID (WT < 150 kg, CrCl > 30 mL/min) AND *Sequential Compression Device (SCD) Assessment and Plan Assessment and Plan Assessment/plan: 1. Right intertrochanteric femur fracture Nothing by mouth Morphine for pain Orthopedic surgery consulted, appreciate assistance 2. Diabetes mellitus Sliding scale insulin Monitor blood glucose 3. Hypertension/hyperlipidemia/coronary artery disease Continue home medications FEN Nothing by mouth NS at 84 cc/hr Electrolytes: Monitor and replete when necessary Holding pharmacologic anticoagulation in anticipation of operative repair Physician Certification 2 Midnight Certification Type: Admission for Inpatient Services Order for Inpatient Services The services are ordered in accordance with Medicare regulations or non- Medicare payer requirements, as applicable. In the case of services not specified as inpatient-only, they are appropriately provided as inpatient services in accordance with the 2-midnight benchmark. Estimated LOS (days): 2 2 days is the estimated time the patient will need to remain in the hospital, assuming treatment plan goals are met and no additional complications. Post-Hospital Plan: Not yet determined [place],Leah Marcy MD Jun 18, 2017 23:46
[2017-06-19] VITALS (11 sets, daily range): BP systolic 149–174; BP diastolic 68–75; PULSE 68–95; RESP 16–17; TEMP 97.4–98.5; O2SAT 98–100
[2017-06-19] MEDS: traZODone HCL 50 MG TAB PO SCH ×2 (00:13→21:19)
[2017-06-19] MEDS: ATORVASTATIN 20 MG TAB PO SCH ×2 (00:13→21:19)
[2017-06-19] MEDS: SODIUM CHLORIDE 0.9% FLUSH 10 ML FLUSH IV FLUSH SCH ×3 (00:14→21:00)
[2017-06-19] MEDS ORDERED: VANCOMYCIN HCL 1000 MG VIAL ONE (06:17)
[2017-06-19] MEDS ORDERED: BUPIVACAINE/EPINEPHRINE 0.25% PF 10 ML VIAL ONE (06:17)
[2017-06-19] MEDS ORDERED: GENTAMICIN SULFATE 80 MG/2 ML VIAL ONE (06:17)
--- NOTE | 2017-06-19 06:35 | PD.ORT.PN ---
Subjective Subjective Remarks Previous left intertrochanteric femur fracture with intramedullary keiko fixation of proximal 6 weeks ago. Arrived at office yesterday and had no complaints to his left hip but did have complaints of right hip pain. He fell approximately 2 weeks ago and has had another subsequent falls. X-rays showed a nondisplaced right in her trochanteric femur fracture. Confirm CT scan [facility] at [facility]. Intertrochanteric femur fracture was confirmed and was brought to the emergency room. Surgical intervention is necessary for intramedullary keiko fixation of his right intertrochanteric femur fracture. We will plan on surgery this morning Objective Vitals Vital Signs Date Time Temp Pulse Resp B/P (MAP) Pulse Ox O2 Delivery O2 Flow Rate FiO2 06/19/17 03:41 98.5 92 16 174/75 (108) 100 06/19/17 03:18 92 06/19/17 00:06 98.5 68 16 163/75 (104) 100 06/18/17 16:41 97.6 98 18 167/73 (104) 98 Result Diagram: 06/18/17 1729 06/18/17 1729 Other Results Laboratory Tests Test 06/18/17 17:29 Prothromb Time International Ratio 1.0 RATIO Prothrombin Time 10.5 SEC (9.8-11.6) Objective Remarks Left lower extremity: Incision with a healed. Minimal pain with motion of hip. Full range of motion knee and ankle. Distally intact sensation good capillary refills. Right lower extremity: Pain to palpation of trochanteric region. Pain with any motion of hip with forward flexion and internal/external rotation. No pain with knee or ankle motion. Distally intact sensation with good capillary refills Assessment & Plan Problem List: (1) Intertrochanteric fracture of right femur ICD Codes: S72.141A - Displaced intertrochanteric fracture of right femur, initial encounter for closed fracture Status: Acute Qualifiers: Qualified Codes: S72.144A - Nondisplaced intertrochanteric fracture of right femur, initial encounter for closed fracture Assessment and Plan Right intertrochanteric femur fracture Nothing by mouth Sign consents Surgery this morning for intramedullary keiko fixation of the right femur Ryan Lagos Jr. Jun 19, 2017 06:35
[2017-06-19] MEDS ORDERED: ceFAZolin INJ 1,000 MG VIAL ONE (06:56)
[2017-06-19] MEDS ORDERED: SODIUM CHLORID 0.9% 500 ML IV PRN (07:00)
[2017-06-19] MEDS ORDERED: CHLORHEXIDINE GLUCONATE 2 % 1 PACK (2 CLOTHS) TOPICAL PRN (07:00)
[2017-06-19] MEDS ORDERED: LACTATED RINGER'S 1000 ML IV PRN (07:00)
[2017-06-19] MEDS ORDERED: POVIDONE IODINE 5% (ANTISEPSIS KIT) 4 APPLICATIONS EACH NARE PRN (07:00)
[2017-06-19 07:25] LABS: BASOPHIL # 0.1 TH/MM3 (0-0.2); BASOPHIL % 0.5 % (0.0-2.0); EOSINOPHIL # 0.1 TH/MM3 (0-0.4); EOSINOPHIL % 0.5 % (0.0-4.0); HEMATOCRIT 26.6 % (39.0-51.0); LYMPH % 8.1 % (9.0-44.0); LYMPHOCYTE # 0.9 TH/MM3 (1.0-4.8); MEAN CELL VOLUME 93.1 FL (80.0-100.0); MEAN CORPUSCULAR HEMOGLOBIN 31.5 PG (27.0-34.0); MEAN CORPUSCULAR HGB CONC 33.8 % (32.0-36.0); MEAN PLATELET VOLUME 7.5 FL (7.0-11.0); MONO % 7.6 % (0.0-8.0); MONOCYTE # 0.8 TH/MM3 (0-0.9); NEUT % 83.3 % (16.0-70.0); PLATELET COUNT 523 TH/MM3 (150-450); RED BLOOD COUNT 2.86 MIL/MM3 (4.50-5.90); RED CELL DISTRIBUTION WIDTH 18.3 % (11.6-17.2); WHITE BLOOD COUNT 10.8 TH/MM3 (4.0-11.0)
--- NOTE | 2017-06-19 07:49 | PD.OP ---
cc: Festus Martinez MD Operative Report Date of Surgery: Jun 19, 2017 Preoperative Diagnosis: Right hip intertrochanteric fracture Postoperative Diagnosis: Procedure: Right hip reduction and intramedullary nail fixation Anesthesia: Gen. Surgeon: Festus Martinez Home Care Assistant(s): JEN Butt PA-C The surgical procedure was assisted by my physician stonecutter assistant. My P.A. presence was necessary throughout this case for the manipulation and positioning of the surgical extremity. My P.A. was assisting me throughout the duration of this procedure. The skill set of a physician stonecutter assistant was medically necessary to complete this procedure. During the surgical case the surgical brace maker was working at the back table and the physician stonecutter assistant was directly assisting me. Operation and Findings: Implants used: [13]mm 130 Biomet short troch nail Plan of activity: Weight-bear as tolerated Patient was seen and evaluated preoperatively. The patient has significant hip pain from right intertrochanteric hip fracture. The risk and benefits of surgery were discussed in depth with the patient to include bleeding infection nonunion malunion and need for hip replacement painful hardware as well as medical competitions including but not stroke heart attack and . Informed consent was obtained. Operative site was marked. Patient was brought to the operating room and placed on fracture table. IV sedation was administered by anesthesiologist. Timeout procedure was performed. Hip and leg were prepped with alcohol followed by DuraPrep and draped in the usual sterile fashion. IV antibiotics were given prior to incision. Procedure began with reduction of fracture. Traction was applied. The leg was manipulated to achieve reduction. Excellent reduction was achieved. Fluoroscopy was used to confirm reduction. A 2 inch incision was made proximal to the trochanter. Subcutaneous tissue was dissected bluntly. Guidepin was placed at the tip of the trochanter and advanced into the femoral canal. Fluoroscopy confirmed appropriate guidepin placement. A opening reamer was placed over the guidepin. The nail was attached to the insertion handle. Nail was now placed through the tip of the trochanter into the femoral canal. Fluoroscopy confirmed appropriate nail placement. A second incision was made over the lateral thigh. Cannulas were placed through the insertion handle down to the femur. Guidepin was now placed through the femoral nail into the center of the femoral head. Fluoroscopy confirmed appropriate guidepin placement. Screw length was measured. Cannulated drill was placed over the guidepin. Appropriate length lag screw was now placed. Traction was released and compression was applied. The set screw was now tightened in dynamic mode. Using the insertion handle as a guide a distal interlocking screw was drilled and placed. Final fluoroscopy revealed well aligned fracture with well-placed hardware. Incision was closed with 3-0 Vicryl and aziza. Sterile dressings were applied. Patient was awakened and transferred to recovery room. Festus Martinez MD Jun 19, 2017 07:49
[2017-06-19] MEDS ORDERED: ONDANSETRON HCL 4 MG/2 ML VIAL IVP PRN (08:00)
[2017-06-19] MEDS ORDERED: diphenhydrAMINE HCL 25 MG CAP PO PRN (08:00)
[2017-06-19 08:01] LABS: BICARBONATE 28.7 MEQ/L (21.0-32.0); CALCIUM 8.9 MG/DL (8.5-10.1); CREATININE 0.83 MG/DL (0.60-1.30)
[2017-06-19] MEDS ORDERED: DO NOT ADM ANY ANTICOAGULANT DRUGS PRN (08:05)
[2017-06-19] MEDS ORDERED: *morphine SULFATE 4 MG/ML PERIprocedure ONLY ONE (08:14)
[2017-06-19] MEDS ORDERED: *morphine SULFATE 8 MG/ML PERIprocedure ONLY ONE (08:31)
[2017-06-19] MEDS: SODIUM CHLOR 0.9% 1000 ML INJ 1,000 ML IV SCH ×3 (08:45→21:18)
[2017-06-19] MEDS: INSULIN ASPART SUPPLEMENTAL SCALE SQ SCH ×4 (08:54→21:00)
[2017-06-19] MEDS ORDERED: ERGOCALCIFEROL (VIT D2) 50,000 UNIT CAP PO ONE (09:00)
[2017-06-19] MEDS: NAMZARIC PO SCH (09:00)
[2017-06-19] MEDS: QUEtiapine FUMARATE 25 MG TAB PO SCH ×3 (09:25→17:42)
[2017-06-19] MEDS: TAMSULOSIN HCL 0.4 MG CAP PO SCH (09:25)
[2017-06-19] MEDS: CHOLECALCIFEROL (VIT D3) 5000 UNIT CAP PO SCH (09:25)
[2017-06-19] MEDS: LEVOTHYROXINE SODIUM 50 MCG TAB PO SCH (09:25)
[2017-06-19] MEDS: FERROUS SULFATE 325 MG (65 MG ELEMENTAL IRON) TAB PO SCH ×3 (09:30→17:37)
[2017-06-19] MEDS ORDERED: LIDOCAINE HCL 1% PF 5 ML SYRINGE OTHER ONE (12:00)
[2017-06-19] MEDS ORDERED: PROPOFOL 200 MG/20 ML AMP IV ONE (12:00)
[2017-06-19] MEDS ORDERED: ONDANSETRON HCL 4 MG/2 ML VIAL IV ONE (12:00)
[2017-06-19] MEDS ORDERED: ROCURONIUM INJ 50 MG/5 ML SYRINGE IV PUSH ONE (12:00)
[2017-06-19] MEDS ORDERED: DEXAMETHASONE SOD PHOS 4 MG/ML VIAL IV ONE (12:00)
--- NOTE | 2017-06-19 14:16 | RADRPT ---
EXAM DATE/TIME: 06/19/2017 07:43 [place] COMPARISON: HIP LEFT (AP&LAT 2/3VWS) W AP PELVIS, April 27, 2017, 3:09. HIP LEFT (AP&LAT 2/3VWS) WO AP PELVIS , April 27, 2017, 7:57. INDICATIONS : Right hip troch nail. MEDICAL HISTORY : None. SURGICAL HISTORY : None. ENCOUNTER: Initial ACUITY: 1 day PAIN SCORE: Non-responsive. LOCATION: Right Hip FINDINGS: A two view examination of the right hip was performed. Post surgical changes following placement of a trochanteric nail in the proximal right femur. CONCLUSION: Satisfactory appearance of the proximal right femur following placement of a trochanteric nail. Naeem Perry MD on June 19, 2017 at 14:10 Board Certified Radiologist. This report was verified electronically.
--- NOTE | 2017-06-19 14:48 | PD.WCN.NOT ---
Wound Consult Description: Received consult from Doctor Fabiola Fuentes. for wound to buttock area. Communicated with: Doctor Fabiola Fuentes and RN Shireen stauffer. Recommendation: 1.Please cleanse wound to sacral area with normal saline. Cleanse patient of stools with Remedy barrier cloths and apply Calazime skin protectant paste over open wound, perianal area and gluteal cleft areas BID and PRN. 2.Leave open to air. 3.Turn patient every 2 hours and PRN for comfort and offloading of pressure from stan prominences. 4. Please vocera wound care nurse for wound deterioration. Additional Information: Patient seen on for evaluation of buttock area wound.Patient seen on [address] [place] [address] for evaluation of buttock area wound. Patient was turned to L side with the total assistance of BUSINESS OPERATIONS DIRECTOR for wound assessment. Patient is noted with a stage 3 pressure injury that has mixed etiology of moisture, pressure and friction to Sacrum extending to bilateral buttock area. Wound measures ~9cm x ~8cm x ~~ 0.1cm.Wound bed presents with ~20% adipose tissue, ~70%pink tissue and ~10% black tissue. Wound has jagged wound margins from 12 to 3 o'clock, Wound margins are uneven from 4 to 11o'clock. Wound has an irregular shape. Cleansed stool from patient's skin with Remedy barrier cloths and applied thick layer of Calazime skin protectant paste. Patient was then turned off bottom with pillow in place for support. Please place patient on [place] airapy surface. All other recommendations are noted above. Ostomy Date of Surgery: Jun 19, 2017 Prachi Cutler [facility] Jun 19, 2017 14:48
--- NOTE | 2017-06-19 15:34 | EKG ---
Date Performed: 06/18/2017 Time Performed: 17:32:39 PTAGE: 82 years EKG: Sinus rhythm NONSPECIFIC T-WAVE ABNORMALITY BORDERLINE ECG INTERPRETATION BASED ON A DEFAULT AGE OF 40 YEARS Sinc e previous tracing, no significant change noted NO PREVIOUS TRACING DOCTOR: Mateo Clement Interpretating Date/Time 06/19/2017 15:33:02
--- NOTE | 2017-06-19 21:54 | HHI.PR ---
Subjective Remarks Follow up for right hip pain, s/p right hip reduction and intramedullary nail fixation. Patient is doing well. At the time of this interview, in the AM, patient was being evaluated by wound care nurse. Patient denies any acute concerns. No fever, chills. Objective Vitals Vital Signs Date Time Temp Pulse Resp B/P (MAP) Pulse Ox O2 Delivery O2 Flow Rate FiO2 06/19/17 21:52 98 Nasal Cannula 1.00 06/19/17 17:41 99 Nasal Cannula 1.00 06/19/17 16:00 97.9 89 16 166/70 (102) 100 06/19/17 16:00 97.4 89 16 06/19/17 16:00 97.4 89 16 166/70 (102) 100 06/19/17 15:48 97.4 95 16 166/70 (102) 100 06/19/17 12:46 97.5 90 16 149/68 (95) 100 06/19/17 12:00 83 20 160/70 (100) 100 Nasal Cannula 2 06/19/17 11:00 84 22 164/72 (102) 100 Nasal Cannula 2 06/19/17 10:00 98.1 82 20 177/75 (109) 100 Nasal Cannula 2 06/19/17 09:45 85 22 174/75 (108) 100 Nasal Cannula 2 06/19/17 08:30 81 20 181/77 (111) 100 Nasal Cannula 2 06/19/17 08:15 78 20 176/76 (109) 100 Nasal Cannula 2 06/19/17 08:05 97.9 77 18 182/78 (112) 100 Nasal Cannula 4 06/19/17 03:41 98.5 92 16 174/75 (108) 100 06/19/17 03:18 92 06/19/17 00:06 98.5 68 16 163/75 (104) 100 I/O 06/18/17 06/18/17 06/18/17 06/19/17 06/19/17 06/19/17 06:59 14:59 22:59 06:59 14:59 22:59 Intake Total 850 ml Output Total 975 ml Balance -125 ml Intake Other 850 ml Output Urine Total 950 ml Estimated Blood Loss 25 ml Result Diagram: 06/19/17 0545 06/19/17 0545 Imaging Last Impressions Hip X-Ray 06/19/17 0000 Signed Impressions: Service Date/Time: Monday, June 19, 2017 07:43 - CONCLUSION: Satisfactory appearance of the proximal right femur following placement of a trochanteric nail. Naeem Perry MD Chest X-Ray 06/18/17 0000 Signed Impressions: Service Date/Time: Sunday, June 18, 2017 16:59 - CONCLUSION: No acute disease. Ryan Short MD Objective Remarks GENERAL: Alert, NAD. SKIN: Warm and dry. stage III decub ulcer present. HEAD: Normocephalic. EYES: No scleral icterus. No injection or drainage. NECK: Supple, trachea midline. No JVD or lymphadenopathy. CARDIOVASCULAR: Regular rate and rhythm without murmurs, gallops, or rubs. RESPIRATORY: Breath sounds equal bilaterally. No accessory muscle use. GASTROINTESTINAL: Abdomen soft, non-tender, nondistended. MUSCULOSKELETAL: No cyanosis, or edema. s/p right hip reduction and intramedullary nail fixation. BACK: Nontender without obvious deformity. No CVA tenderness. A/P Assessment and Plan Right intertrochanteric femur fracture Patient underwent right hip reduction and intramedullary nail fixation 2017. Collbran, Morphine PRN for pain. Diabetes mellus Continue Low dose sliding scale insulin. Hypertension Hypothyroidism Hyperlipidemia Anemia - likely from chronic disease Continue Iron supplements, Lipitor, Levothyroxine 50mcg Qday. Palliative care has been following. Full code. [place]. Fabiola Fuentes DO Jun 19, 2017 21:54
[2017-06-20] VITALS (8 sets, daily range): BP systolic 142–177; BP diastolic 65–78; PULSE 78–100; RESP 16–18; TEMP 97.1–98.5; O2SAT 97–100
[2017-06-20] MEDS: ACETAMINOPHEN/HYDROcodone 325 MG/5 MG TAB PO PRN ×4 (01:20→13:35)
[2017-06-20] MEDS: LEVOTHYROXINE SODIUM 50 MCG TAB PO SCH (04:59)
[2017-06-20] MEDS ORDERED: ENALAPRILAT 1.25 MG/ML VIAL IV PUSH ONE (06:45)
[2017-06-20] MEDS ORDERED: NORC5TAB PO (06:50)
[2017-06-20] MEDS ORDERED: XARE10TA PO (06:50)
--- NOTE | 2017-06-20 07:21 | PD.ORT.PN ---
Subjective Subjective Remarks POD 1 status post intramedullary nailing of right intertrochanteric hip fracture Status post left intertrochanteric hip fracture with IM nailing Doing well. Reports mild pain. Objective Vitals Vital Signs Date Time Temp Pulse Resp B/P (MAP) Pulse Ox O2 Delivery O2 Flow Rate FiO2 06/20/17 04:25 97.5 85 17 163/70 (101) 100 06/20/17 00:55 97.2 92 18 162/76 (104) 100 06/19/17 23:26 68 06/19/17 21:52 98 Nasal Cannula 1.00 06/19/17 21:15 100 Nasal Cannula 2.00 06/19/17 20:45 97.4 93 17 159/70 (99) 100 06/19/17 20:07 84 06/19/17 17:41 99 Nasal Cannula 1.00 06/19/17 16:00 97.9 89 16 166/70 (102) 100 06/19/17 16:00 97.4 89 16 06/19/17 16:00 97.4 89 16 166/70 (102) 100 06/19/17 15:48 97.4 95 16 166/70 (102) 100 06/19/17 12:46 97.5 90 16 149/68 (95) 100 06/19/17 12:00 83 20 160/70 (100) 100 Nasal Cannula 2 06/19/17 11:00 84 22 164/72 (102) 100 Nasal Cannula 2 06/19/17 10:00 98.1 82 20 177/75 (109) 100 Nasal Cannula 2 06/19/17 09:45 85 22 174/75 (108) 100 Nasal Cannula 2 06/19/17 08:30 81 20 181/77 (111) 100 Nasal Cannula 2 06/19/17 08:15 78 20 176/76 (109) 100 Nasal Cannula 2 06/19/17 08:05 97.9 77 18 182/78 (112) 100 Nasal Cannula 4 I/O 06/19/17 06/19/17 06/19/17 06/20/17 06/20/17 06/20/17 07:00 15:00 23:00 07:00 15:00 23:00 Intake Total 850 ml 360 ml Output Total 975 ml 1900 ml Balance -125 ml -1540 ml Intake Oral 360 ml Other 850 ml Output Urine Total 950 ml 1900 ml Estimated Blood Loss 25 ml Result Diagram: 06/19/17 0545 06/19/17 0545 Objective Remarks RLE: Dressings clean and dry. Intact. Full sensation distally. Assessment & Plan Problem List: (1) Intertrochanteric fracture of right femur ICD Codes: S72.141A - Displaced intertrochanteric fracture of right femur, initial encounter for closed fracture Status: Acute Qualifiers: Qualified Codes: S72.144A - Nondisplaced intertrochanteric fracture of right femur, initial encounter for closed fracture Assessment and Plan 1) Right intertrochanteric femur fracture s/p IMN - POd 1 -WBAT -daily dressing changes POD 2 -CM for rehab placement -DVT prophylaxis -f/u with [facility] or [facility] in 2 weeks Luis Torres/First Celeste HENDERSON Jun 20, 2017 07:21
[2017-06-20] MEDS: INSULIN ASPART SUPPLEMENTAL SCALE SQ SCH ×4 (08:00→20:13)
[2017-06-20] MEDS: QUEtiapine FUMARATE 25 MG TAB PO SCH ×3 (08:16→18:00)
[2017-06-20] MEDS: FERROUS SULFATE 325 MG (65 MG ELEMENTAL IRON) TAB PO SCH ×3 (08:16→18:30)
[2017-06-20] MEDS: ENOXAPARIN SODIUM 30 MG/0.3 ML SYRINGE SQ SCH (08:16)
[2017-06-20] MEDS: TAMSULOSIN HCL 0.4 MG CAP PO SCH (08:17)
[2017-06-20] MEDS: NAMZARIC PO SCH (09:00)
[2017-06-20] MEDS: SODIUM CHLORIDE 0.9% FLUSH 10 ML FLUSH IV FLUSH SCH ×2 (09:00→20:12)
[2017-06-20] MEDS: CHOLECALCIFEROL (VIT D3) 5000 UNIT CAP PO SCH (09:30)
[2017-06-20 11:55] LABS: HEMATOCRIT 24.1 % (39.0-51.0)
[2017-06-20] MEDS: SODIUM CHLOR 0.9% 1000 ML INJ 1,000 ML IV SCH (19:07)
[2017-06-20] MEDS: ATORVASTATIN 20 MG TAB PO SCH (20:12)
[2017-06-20] MEDS: traZODone HCL 50 MG TAB PO SCH (20:12)
--- NOTE | 2017-06-20 20:41 | HHI.PR ---
Subjective Remarks Follow up for right hip pain, s/p right hip reduction and intramedullary nail fixation. More alert today. No acute concerns. is at bedside. No fever, chills. Objective Vitals Vital Signs Date Time Temp Pulse Resp B/P (MAP) Pulse Ox O2 Delivery O2 Flow Rate FiO2 06/20/17 20:00 98.5 100 16 177/78 (111) 98 06/20/17 15:27 98.2 78 18 142/65 (90) 97 06/20/17 12:00 97.2 78 18 143/65 (91) 100 06/20/17 07:56 97.1 18 164/67 (99) 100 06/20/17 04:25 97.5 85 17 163/70 (101) 100 06/20/17 04:00 85 06/20/17 00:55 97.2 92 18 162/76 (104) 100 06/19/17 23:26 68 06/19/17 21:52 98 Nasal Cannula 1.00 06/19/17 21:15 100 Nasal Cannula 2.00 06/19/17 20:45 97.4 93 17 159/70 (99) 100 I/O 06/19/17 06/19/17 06/19/17 06/20/17 06/20/17 06/20/17 07:00 15:00 23:00 07:00 15:00 23:00 Intake Total 850 ml 1100 ml 1110 ml 600 ml Output Total 975 ml 1900 ml 300 ml Balance -125 ml 1100 ml -790 ml -300 ml 600 ml Intake Oral 360 ml 600 ml IV Total 1100 ml 750 ml Other 850 ml Output Urine Total 950 ml 1900 ml 300 ml Estimated Blood Loss 25 ml # Voids 1 3 # Bowel Movements 0 Result Diagram: 06/20/17 1130 06/19/17 0545 Imaging Last Impressions Hip X-Ray 06/19/17 0000 Signed Impressions: Service Date/Time: Monday, June 19, 2017 07:43 - CONCLUSION: Satisfactory appearance of the proximal right femur following placement of a trochanteric nail. Naeem Perry MD Chest X-Ray 06/18/17 0000 Signed Impressions: Service Date/Time: Sunday, June 18, 2017 16:59 - CONCLUSION: No acute disease. Ryan Short MD Objective Remarks GENERAL: Alert, NAD. SKIN: Warm and dry. stage III decub ulcer present. HEAD: Normocephalic. EYES: No scleral icterus. No injection or drainage. NECK: Supple, trachea midline. No JVD or lymphadenopathy. CARDIOVASCULAR: Regular rate and rhythm without murmurs, gallops, or rubs. RESPIRATORY: Breath sounds equal bilaterally. No accessory muscle use. GASTROINTESTINAL: Abdomen soft, non-tender, nondistended. MUSCULOSKELETAL: No cyanosis, or edema. s/p right hip reduction and intramedullary nail fixation. BACK: Nontender without obvious deformity. No CVA tenderness. Procedures 06/19/2017 Right hip reduction and intramedullary nail fixation A/P Assessment and Plan Right intertrochanteric femur fracture Patient underwent right hip reduction and intramedullary nail fixation 2017. [place], Morphine PRN for pain. Diabetes mellus Continue Low dose sliding scale insulin. Hypertension Hypothyroidism Hyperlipidemia Anemia - likely from chronic disease Continue Iron supplements, Lipitor, Levothyroxine 50mcg Qday. Sacral wound Appreciate wound care recs. Palliative care has been following. Full code. Lovenox. Fabiola Fuentes DO Jun 20, 2017 20:41
[2017-06-21] VITALS (8 sets, daily range): BP systolic 142–162; BP diastolic 63–72; PULSE 70–90; RESP 16–20; TEMP 98.4–98.8; O2SAT 96–99
[2017-06-21] MEDS: LEVOTHYROXINE SODIUM 50 MCG TAB PO SCH (04:25)
[2017-06-21] MEDS: ACETAMINOPHEN/HYDROcodone 325 MG/5 MG TAB PO PRN ×2 (04:26→09:16)
--- NOTE | 2017-06-21 06:33 | PD.ORT.PN ---
Subjective Subjective Remarks POD 2 status post intramedullary nailing of right intertrochanteric hip fracture Status post left intertrochanteric hip fracture with IM nailing Doing well. Reports mild pain. Objective Vitals Vital Signs Date Time Temp Pulse Resp B/P (MAP) Pulse Ox O2 Delivery O2 Flow Rate FiO2 06/21/17 05:47 75 142/63 (89) 06/21/17 04:49 98.5 82 16 162/72 (102) 98 06/21/17 04:07 70 06/21/17 00:15 98.4 82 16 146/65 (92) 98 06/21/17 00:11 71 06/20/17 21:26 Nasal Cannula 1.00 06/20/17 20:04 89 06/20/17 20:00 98.5 100 16 177/78 (111) 98 06/20/17 15:27 98.2 78 18 142/65 (90) 97 06/20/17 12:00 97.2 78 18 143/65 (91) 100 06/20/17 07:56 97.1 18 164/67 (99) 100 I/O 06/20/17 06/20/17 06/20/17 06/21/17 06/21/17 06/21/17 07:00 15:00 23:00 07:00 15:00 23:00 Intake Total 1110 ml 600 ml Output Total 1900 ml 300 ml Balance -790 ml -300 ml 600 ml Intake Oral 360 ml 600 ml IV Total 750 ml Output Urine Total 1900 ml 300 ml # Voids 1 3 # Bowel Movements 0 Result Diagram: 06/20/17 1130 06/19/17 0545 Objective Remarks RLE: Dressings clean and dry. Intact. Full sensation distally. Assessment & Plan Problem List: (1) Intertrochanteric fracture of right femur ICD Codes: S72.141A - Displaced intertrochanteric fracture of right femur, initial encounter for closed fracture Status: Acute Qualifiers: Qualified Codes: S72.144A - Nondisplaced intertrochanteric fracture of right femur, initial encounter for closed fracture Assessment and Plan 1) Right intertrochanteric femur fracture s/p IMN - POD 2 -WBAT -daily dressing changes POD 2 -CM for rehab placement -DVT prophylaxis -f/u with [facility] or [facility] in 2 Luis Hall PA/Chemical Instrumentation Officer PA Jun 21, 2017 06:33
[2017-06-21] MEDS: SODIUM CHLOR 0.9% 1000 ML INJ 1,000 ML IV SCH (07:20)
[2017-06-21] MEDS: INSULIN ASPART SUPPLEMENTAL SCALE SQ SCH ×2 (08:00→12:28)
[2017-06-21] MEDS: NAMZARIC PO SCH (09:00)
[2017-06-21] MEDS: FERROUS SULFATE 325 MG (65 MG ELEMENTAL IRON) TAB PO SCH ×2 (09:16→12:25)
[2017-06-21] MEDS: QUEtiapine FUMARATE 25 MG TAB PO SCH ×2 (09:16→12:25)
[2017-06-21] MEDS: TAMSULOSIN HCL 0.4 MG CAP PO SCH (09:17)
[2017-06-21] MEDS: CHOLECALCIFEROL (VIT D3) 5000 UNIT CAP PO SCH (09:17)
[2017-06-21] MEDS: SODIUM CHLORIDE 0.9% FLUSH 10 ML FLUSH IV FLUSH SCH (09:22)
[2017-06-21] MEDS: ENOXAPARIN SODIUM 30 MG/0.3 ML SYRINGE SQ SCH (09:23)
--- NOTE | 2017-06-21 11:37 | HHI.DS ---
Discharge Summary Admission Date Jun 18, 2017 at 8:40 pm Discharge Date: Jun 21, 2017 Admitting Diagnosis Right intertrochanteric hip fracture (1) Intertrochanteric fracture of right femur ICD Code: S72.141A - Displaced intertrochanteric fracture of right femur, initial encounter for closed fracture Diagnosis: Principal Status: Acute (2) Hypertension ICD Code: I10 - Essential (primary) hypertension (3) Diabetes mellitus ICD Code: E11.9 - Type 2 diabetes mellitus without complications Procedures 06/19/2017 Right hip reduction and intramedullary nail fixation Brief History - From Admission 82-year-old male with a past medical history significant for hypertension, diabetes mellitus, hyperlipidemia, CAD, dementia and a history of prostate cancer presents to the emergency department for evaluation of right hip pain. The patient lives in an [place] and fell approximately 8 days ago when he was standing from his wheelchair. He and secondary to his dementia however his is bedside and tells me he has been complaining of pain in his right hip and leg for the past 8 days. He is status post left hip placement status post fracture on 04/27/17. He was seen in clinic today by Dr. Worley who ordered an outpatient x-rays which revealed a right intertrochanteric femur fracture. Sent to the emergency department for further evaluation and treatment. The patient denies any chest pain or shortness of breath. Denies abdominal pain or nausea/vomiting/diarrhea. No lateralizing signs/symptoms. No fever/chills. He complains of pain in his right hip. CBC/BMP: 06/20/17 1130 06/19/17 0545 Significant Findings Laboratory Tests Test 06/18/17 17:29 06/19/17 05:45 06/20/17 11:30 Red Blood Count 3.53 MIL/MM3 (4.50-5.90) 2.86 MIL/MM3 (4.50-5.90) Hemoglobin 11.1 GM/DL (13.0-17.0) 9.0 GM/DL (13.0-17.0) 8.0 GM/DL (13.0-17.0) Hematocrit 33.0 % (39.0-51.0) 26.6 % (39.0-51.0) 24.1 % (39.0-51.0) Red Cell Distribution Width 18.5 % (11.6-17.2) 18.3 % (11.6-17.2) Platelet Count 615 TH/MM3 (150-450) 523 TH/MM3 (150-450) Neutrophils (%) (Auto) 90.8 % (16.0-70.0) 83.3 % (16.0-70.0) Lymphocytes (%) (Auto) 3.4 % (9.0-44.0) 8.1 % (9.0-44.0) Neutrophils # (Auto) 8.8 TH/MM3 (1.8-7.7) 9.0 TH/MM3 (1.8-7.7) Lymphocytes # (Auto) 0.3 TH/MM3 (1.0-4.8) 0.9 TH/MM3 (1.0-4.8) Blood Urea Nitrogen 24 MG/DL (7-18) Random Glucose 234 MG/DL (74-106) 133 MG/DL (74-106) Total Protein 8.7 GM/DL (6.4-8.2) Alkaline Phosphatase 226 U/L (45-117) Estimat Glomerular Filtration Rate 65 ML/MIN (>89) Imaging Last Impressions Hip X-Ray 06/19/17 0000 Signed Impressions: Service Date/Time: Monday, June 19, 2017 07:43 - CONCLUSION: Satisfactory appearance of the proximal right femur following placement of a trochanteric nail. Naeem Perry MD Chest X-Ray 06/18/17 0000 Signed Impressions: Service Date/Time: Sunday, June 18, 2017 16:59 - CONCLUSION: No acute disease. Ryan Short MD PE at Discharge GENERAL: Alert, NAD. SKIN: Warm and dry. stage III decub ulcer present. HEAD: Normocephalic. EYES: No scleral icterus. No injection or drainage. NECK: Supple, trachea midline. No JVD or lymphadenopathy. CARDIOVASCULAR: Regular rate and rhythm without murmurs, gallops, or rubs. RESPIRATORY: Breath sounds equal bilaterally. No accessory muscle use. GASTROINTESTINAL: Abdomen soft, non-tender, nondistended. MUSCULOSKELETAL: No cyanosis, or edema. s/p right hip reduction and intramedullary nail fixation. BACK: Nontender without obvious deformity. No CVA tenderness. Pt update on day of discharge Patient is doing well. More alert today. No acute concerns. Hospital Course 82-year-old male with a past medical history significant for hypertension, diabetes mellitus, hyperlipidemia, CAD, dementia and a history of prostate cancer presents to the emergency department for evaluation of right hip pain. After reviewing imaging studies, Dr. Worley sent patient to the hospital for further eval/tx. Patient underwent surgical intervention on 06/19/2017. Right intertrochanteric femur fracture Patient underwent right hip reduction and intramedullary nail fixation 2017. [place], Morphine PRN for pain. Diabetes mellitus Continue Low dose sliding scale insulin. Hypertension Hypothyroidism Hyperlipidemia Anemia - likely from chronic disease Continue Iron supplements, Lipitor, Levothyroxine 50mcg Qday. Sacral wound Appreciate wound care recs: 1.Please cleanse wound to sacral area with normal saline. Cleanse patient of stools with Remedy barrier cloths and apply Calazime skin protectant paste over open wound, perianal area and gluteal cleft areas BID and PRN. 2.Leave open to air. 3.Turn patient every 2 hours and PRN for comfort and offloading of pressure from stan prominences. 4. Please vocera wound care nurse for wound deterioration. Pt Condition on Discharge: Good Discharge Disposition: Discharge to SNF Discharge Time: <= 30 minutes Discharge Instructions DIET: Follow Instructions for: Diabetic Diet Activities you can perform: Regular-No Restrictions Follow up Referrals: Orthopedics - 2 Weeks @ [facility] with Festus Worley MD Continued Medications: Acetaminophen (Tylenol) 325 Mg Tab 650 MG PO Q8HR PRN for ANGINA, TAB 0 Refills Amlodipine (Amlodipine) 10 Mg Tab 10 MG PO DAILY for Blood Pressure Management, #30 TAB 0 Refills Atorvastatin (Atorvastatin) 20 Mg Tab 20 MG PO HS for Cholesterol Management, #30 TAB 0 Refills Calcium Carbonate-Vitamin D (Calcium 600+D 200) 600-200 Mg-Unit Tab 1 TAB PO BID for Nutritional Supplement for 30 Days, #60 TAB 0 Refills Cholecalciferol (Vitamin D3) 2,000 Unit Cap 2000 UNITS PO DAILY for Nutritional Supplement, #60 CAP 0 Refills Clopidogrel (Clopidogrel) 75 Mg Tab 75 MG PO DAILY for Blood Clot Prevention, #30 TAB 0 Refills Econazole Topical (Econazole Topical) 1% Cream 1 APPLIC TOPICAL DAILY for Fungal Infection, #1 TUBE 0 Refills Ergocalciferol (Ergocalciferol) 50,000 Unit Cap 56459 UNITS PO Q7D for Nutritional Supplement, #8 CAP Ferrous Sulfate (Ferrous Sulfate) 325 Mg (65 Mg Iron) Tablet 325 MG PO TIDPC for Nutritional Supplement, #90 TAB 0 Refills Hydrocodone-Acetaminophen ([place]) 5 Mg-325 Mg Tab 1 TAB PO Q4H PRN for PAIN, #40 TAB 0 Refills (This prescription has been renewed ) Levothyroxine (Levothyroxine) 50 Mcg Tab 50 MCG PO DAILY for Thyroid, #30 TAB 0 Refills Memantine-Donepezil (Namzaric) 28-10 Mg Cap 1 CAP PO DAILY for Alzheimer Dementia, #30 CAP 0 Refills Metformin (Glucophage) 500 Mg Tab 250 MG PO BIDPC for Blood Sugar Management, #60 TAB 0 Refills Nitroglycerin SL (Nitrostat SL) 0.4 Mg Subl 0.4 MG SL DIRECTED PRN for CHEST PAIN, #100 TAB.SL 0 Refills 1 tablet under the tongue as needed for chest pain. Repeat every 5 minutes for a total of 3 DOSES or call 911 if NO relief. Quetiapine (Seroquel) 25 Mg Tab 25 MG PO TID, #60 TAB 0 Refills Rivaroxaban (Xarelto) 10 Mg Tab 10 MG PO DAILY for Blood Clot Prevention for 14 Days, #14 TAB 0 Refills (This prescription has been renewed) Tamsulosin (Tamsulosin) 0.4 Mg Cap 0.4 MG PO DAILY for Manage Prostate Problems, #30 CAP 0 Refills Trazodone (Trazodone) 50 Mg Tab 75 MG PO HS for Control Depression, #30 TAB 0 Refills Fabiola Fuentes DO Jun 21, 2017 11:37 am
== END 2017-06-21 13:06 | DRG 480 ==
LOC: NED 16:32 → UNDOADMIN 20:05 → NEDA 20:05 → INTOOBSV 20:20 → OBSVTOIN 20:40 → NEPGCP 21:59 → N06B 06-19 08:18 → N06A 06-19 12:45
PROVIDERS: ADMIT Hospitalist; ATTEND Hospitalist
PROC: 0QS606Z Reposition Right Upper Femur with Intramedullary Internal Fixation Device, Open Approach (ICD-10-PCS; principal; 2017-06-19 06:53)
DX: S72.141A Displaced intertrochanteric fracture of right femur, initial encounter for closed fracture (principal); L89.43 Pressure ulcer of contiguous site of back, buttock and hip, stage 3; F03.90 Unspecified dementia, unspecified severity, without behavioral disturbance, psychotic disturbance, mood disturbance, and anxiety; E11.9 Type 2 diabetes mellitus without complications; D63.8 Anemia in other chronic diseases classified elsewhere; I10 Essential (primary) hypertension; Z96.642 Presence of left artificial hip joint; W19.XXXA Unspecified fall, initial encounter; I25.10 Atherosclerotic heart disease of native coronary artery without angina pectoris; E78.5 Hyperlipidemia, unspecified; E03.9 Hypothyroidism, unspecified; Z79.84 Long term (current) use of oral hypoglycemic drugs; Z79.01 Long term (current) use of anticoagulants
CPT/HCPCS: 71046; 73502; 76000; 80048; 80053; 82306; 82948; 85014; 85018; 85025; 85610; 85730; 86850; 86900; 86901; 93005; 96374; 96375; C1713; J0690; J1100; J1580; J1650; J1815; J2270; J2405; J3010; J3370; J7030; J7120